=== PATIENT | female | born 1960 | race Caucasian/White ===

== ENCOUNTER 2023-10-27 09:20 | Emergency (ER) | payer OTHER, SELFPAY ==
[2023-10-27 09:21] VITALS: BP 119/92
[2023-10-27 09:31] VITALS: BP 140/114
[2023-10-27 10:00] VITALS: BP 132/69
--- NOTE | 2023-10-27 10:48 | ED.GENMED ---
History of Present Illness
General
Chief Complaint: Heart Rate Problem
Source: patient
Exam Limitations: none
Time Seen by Provider: 10/27/23 09:37
Travel History
Have you had any contact with someone who has COVID-19?: No
Do you have any symptoms of coronavirus? Fever > 100 degrees, chills, cough, shortness of breath, sore throat, loss of taste or smell, muscle aches, or headache?: No
History of Present Illness
History of Present Illness:
Heart racing started about 4 hours prior to ER arrival. No chest pain no shortness of breath. Feels slightly lightheaded. No history of same. Patient is on steroids and antibiotics for ongoing bronchitis
Past History
Past History
ED Past Medical History: Other (Kidney stones)
ED Past Surgical History: Appendectomy and
Social History
Tobacco: Non-smoker
Alcohol: None
Drug: None
Personal:
Living: with family
Employment: Employed
Family History
Family History: Other
Review of Systems
Review of Systems
All Other Systems: Not applicable
Constitutional: Denies fever
Respiratory: Denies other
Cardiac: Denies chest pain or syncope
Phy Exam
Physical Exam
Physical Exam:
GENERAL: Alert and oriented in no apparent distress
EYE: Orbits normal.
NECK: Supple, no thyroid palpable
CARDIAC: Tachycardic and regular no murmur
LUNGS: Clear breath sounds,normal
ABDOMEN: Soft, without focal tenderness or distention
NEUROLOGICAL: Alert and oriented , grossly non-focal
SKIN: Warm and dry, no rash or lesion, no discoloration, skin intact.
MUSCULOSKELETAL: No edema,no deformity.Good color
PSYCH: Normal and appropriate interaction.
Scores
[id number] Score for Afib Stroke Risk
Age in Years (65=0, 65-74=1, >/=75=2): <65
Sex (Female=+1): Female
Congestive Heart Failure History (Yes=+1): No
Hypertension History (Yes=+1): Yes
Stroke/TIA/Thromboembolism History (Yes=+2): No
Vascular Disease History (Yes=+1): No
Diabetes Mellitus (Yes=+1): No
Score: 2
Anticoagulation Recommendations: Recommend anticoagulation (as validated in nonvalvular fib)
Course
Orders/Labs/Results
Orders:
Orders
10/27/23 09:23
Electrocardiogram (*1) Urgent
Reason for Study: Tachycardia
EKG- Treatment ONCE
10/27/23 10:02
Electrocardiogram (*1) Urgent
Reason for Study: Other
Other Reason for Exam: change from flutter
EKG- Treatment ONCE
10/27/23 10:46
Cardiac Monitoring- Treatment ONCE
IV Insert/Care/Rem.- Treatment PRN
10/27/23 10:58
Basic Metabolic Panel Urgent
Complete Blood Count/With Diff Urgent
TSH Reflex To Free T4 Urgent
10/27/23 12:00
Apixaban [Eliquis] 5 mg PO NOW STA
Abnormal Lab Results
10/27/23
10:58
WBC 13.3 H 10^3/uL
(4.8-10.8)
MCH 32.4 H pg
(27.0-31.0)
MPV 10.7 H fL
(7.4-10.4)
Abs Immat Gran (auto) 0.1 H 10^3/uL
(0-0.05)
Absolute Neuts (auto) 7.4 H 10^3/uL
(1.4-6.5)
Absolute Lymphs (auto) 4.0 H 10^3/uL
(1.2-3.4)
Absolute Monos (auto) 1.5 H 10^3/uL
(0.1-0.6)
Immature Gran % 0.7 H %
(0-0.5)
Monocytes % 11.1 H %
(1.7-9.3)
Creatinine 0.5 L mg/dL
(0.6-1.0)
Glucose 122 H mg/dl
(70-99)
10/27/23 10:58
10/27/23 10:58
Vital Signs
Initial and Last Documented VS:
Initial Vital Signs
Temp Pulse Resp BP Pulse Ox
98.1 F 121 18 119/92 97
10/27/23 09:21 10/27/23 09:21 10/27/23 09:21 10/27/23 09:21 10/27/23 09:21
Last Documented Vital Signs
Temp Pulse Resp BP Pulse Ox
98.1 F 75 10 132/69 97
10/27/23 09:21 10/27/23 10:15 10/27/23 10:15 10/27/23 10:00 10/27/23 10:26
*Pulse Oximetry
Patient hypoxic: no
*EKG
Interpreted by ED Provider?: Yes
Interpretation: abnormal
Comparison EKG: changes noted
Heart Rate: 160
Rate: tachycardiac
Rhythm: atrial flutter
Powell: normal axis
Interval: normal interval
QRS Pattern: left vent hypertrophy
Ischemia: non-specific ST changes
*Critical Care Note
Total Time (30-74mins, 75-104mins- exclusive of procedures): Not Applicable
Update Note
Update Note:
Patient self converted repeat EKG normal sinus rhythm rate of 77. Powell left axis deviation.
1200.... Discussed with cardiology. Has remained in a normal sinus rhythm. Mild leukocytosis but on steroids. Vipin vas 2. They recommend anticoagulation. Discussed with patient. No contraindication
ED Attending Note
-
Portions of this chart may have been created with voice recognition software.� Occasional wrong word or��sound alike� substitutions may have occurred due to the inherent limitations of voice recognition software.
Discharge Plan
Departure
Patient Disposition: Home (Routine Discharge)
Date of Disposition: 10/27/23
Time of Disposition: 12:00
Patient with high blood pressure during this ER visit?: Yes
Discharge Problem:
Transient atrial flutter, Recent bronchitis
Instructions: Atrial Flutter (DC), Going Home on Blood Thinners , BLOOD PRESSURE
Prescriptions:
New
Eliquis 5 mg tablet
5 mg PO BID Qty: 60 0RF
No Action
ibuprofen 200 MG tablet
800 mg PO BIDPRN PRN (Reason: mild pain)
vitamin B complex [Neurodep] 1 CAP capsule
1 cap PO DAILY
docosahexaenoic acid-epa 1 CAP capsule
1 cap PO DAILY
Magnesium
1 tab PO DAILY
Vitamin D3 (cholecalciferol):
1 tab PO DAILY
Referrals:
Jarrell Wilson MD [Active] - Follow up in 5-7 days
Ace Cox MD [Family Provider] -
Activity Restrictions/Additional Instructions:
Your prescription was sent to your pharmacy
Follow-up closely with cardiology
Interventions
Interventions:
*Risk Screen - Suicide Last Done: 10/27/23 09:21
*General Assessment Last Done: 10/27/23 09:21
*Neglect/Abuse Screening Last Done: 10/27/23 09:21
ED- Fall Risk Assessment Last Done: 10/27/23 10:26
*ED COVID-19 Vaccine History Last Done: 10/27/23 09:21
ED- Cardiac Assessment Last Done: 10/27/23 10:26
ED- Pulmonary Assessment Last Done: 10/27/23 10:26
[2023-10-27 11:00] VITALS: BP 135/71
[2023-10-27 11:07] LABS: % Basophils 0.7 % (0-2); % Eosinophils 1.7 % (0-6); % Immature Granulocytes 0.7 % (0-0.5); % Lymphocytes 29.9 % (20.5-51.1); % Monocytes 11.1 % (1.7-9.3); % Neutrophils 55.9 % (42.2-75.2); Absolute Basophils 0.1 10^3/uL (0-0.2); Absolute Eosinophils 0.2 10^3/uL (0-0.7); Absolute Immature Granulocytes 0.1 10^3/uL (0-0.05); Absolute Monocytes 1.5 10^3/uL (0.1-0.6); Absolute Neutrophils 7.4 10^3/uL (1.4-6.5); Hematocrit 45.5 % (37.0-47.0); Hemoglobin 15.7 g/dL (12.0-16.0); Mean Corp Hgb Conc. 34.5 g/dL (33.0-37.0); Mean Corpuscular Hgb 32.4 pg (27.0-31.0); Mean Corpuscular Volume 93.8 fL (81.0-99.0); Mean Platelet Volume 10.7 fL (7.4-10.4); Nucleated Red Blood Cells % 0 %; Platelet Count 323 10^3/uL (130-400); Red Blood Cell Count 4.85 10^6/uL (4.20-5.40); White Blood Cell Count 13.3 10^3/uL (4.8-10.8)
[2023-10-27 11:25] LABS: Blood Urea Nitrogen 14 mg/dl (7-17); Calcium 8.9 mg/dl (8.4-10.2); Carbon Dioxide 24 mmol/L (22-30); Chloride 106 mmol/L (98-107); Glucose 122 mg/dl (70-99); Potassium 4.2 mmol/L (3.5-5.1); Sodium 139 mmol/L (135-145); eGFR > 60.00
[2023-10-27 11:59] LABS: TSH Reflex To Free T4 0.73 uIU/ml (0.47-4.68)
[2023-10-27 12:00] VITALS: BP 135/68
[2023-10-27] MEDS: ELIQUIS 5 MG PO (12:16)
== END 2023-10-27 12:28 | disposition home or self-care (01) ==
LOC: EMR 09:20
PROVIDERS: EMERGENCY PHYSICIAN Emergency Medicine; FAMILY PHYSICIAN Internal Medicine
DX: I48.92 Unspecified atrial flutter (principal); R42 Dizziness and giddiness; J20.9 Acute bronchitis, unspecified; Z87.442 Personal history of urinary calculi
CPT/HCPCS: 99284; 80048; 84443; 85025; 93005

== ENCOUNTER 2023-11-18 11:22 | Emergency (ER) | payer OTHER, SELFPAY ==
[2023-11-18 11:31] VITALS: BP 174/86
[2023-11-18 11:50] LABS: % Basophils 0.5 % (0-2); % Eosinophils 0.6 % (0-6); % Immature Granulocytes 1.1 % (0-0.5); % Lymphocytes 15.4 % (20.5-51.1); % Monocytes 8.9 % (1.7-9.3); % Neutrophils 73.5 % (42.2-75.2); Absolute Basophils 0.1 10^3/uL (0-0.2); Absolute Eosinophils 0.1 10^3/uL (0-0.7); Absolute Immature Granulocytes 0.2 10^3/uL (0-0.05); Absolute Lymphocytes 2.3 10^3/uL (1.2-3.4); Absolute Monocytes 1.4 10^3/uL (0.1-0.6); Absolute Neutrophils 11.2 10^3/uL (1.4-6.5); Hematocrit 40.8 % (37.0-47.0); Hemoglobin 13.9 g/dL (12.0-16.0); Mean Corp Hgb Conc. 34.1 g/dL (33.0-37.0); Mean Corpuscular Hgb 32.1 pg (27.0-31.0); Mean Corpuscular Volume 94.2 fL (81.0-99.0); Mean Platelet Volume 9.8 fL (7.4-10.4); Nucleated Red Blood Cells % 0 %; Platelet Count 359 10^3/uL (130-400); Red Blood Cell Count 4.33 10^6/uL (4.20-5.40); Red Cell Dist. Width 13.2 % (11.5-14.5); White Blood Cell Count 15.2 10^3/uL (4.8-10.8)
[2023-11-18 12:03] LABS: ALT (SGPT) 35 U/L (0-35); AST (SGOT) 30 U/L (14-36); Albumin 4.2 g/dl (3.5-5.0); Alkaline Phosphatase 79 U/L (38-126); Blood Urea Nitrogen 15 mg/dl (7-17); Calcium 9.5 mg/dl (8.4-10.2); Carbon Dioxide 25 mmol/L (22-30); Chloride 106 mmol/L (98-107); Glucose 123 mg/dl (70-99); Potassium 3.9 mmol/L (3.5-5.1); Sodium 137 mmol/L (135-145); Total Bilirubin 0.5 mg/dl (0.2-1.3); Total Protein 7.5 g/dl (6.3-8.2); eGFR > 60.00
--- NOTE | 2023-11-18 13:02 | ED.GENMED ---
History of Present Illness
General
Chief Complaint: Cough
Source: patient
Exam Limitations: none
Time Seen by Provider: 11/18/23 13:01
Nursing documentation reviewed up to this point in time: agreed with
Travel History
Have you had any contact with someone who has COVID-19?: No
Do you have any symptoms of coronavirus? Fever > 100 degrees, chills, cough, shortness of breath, sore throat, loss of taste or smell, muscle aches, or headache?: Yes
Symptoms:: cough
History of Present Illness
History of Present Illness:
62-year-old female with history of hypertension, recently diagnosed atrial flutter converted spontaneously back to sinus rhythm now on anticoagulation for the past 3 weeks
Presents for ongoing wheezy cough. Patient says she got sick in August with what she suspected was COVID but never tested positive. Her dad had been sick with pneumonia and he got COVID and he . She was around him at the time. She
ended up going to urgent care and was treated with antibiotics and steroids. She is not sure what dose of steroids she was given. Patient says she ultimately never really felt like she cleared up and by October she ended up going back to her family
doctor for a cough. She felt like she got an acute illness at that time 2. At that time she did not have a chest x-ray. She was treated again with a round of steroids for several days and antibiotics, she is not sure which 1.
Then about 3 weeks ago she came to the ER for tachycardia. It appeared that she was having a A-flutter episode with 2-1 block. She spontaneously converted while she was in the ER. Because of her [id number] score of 2 she was anticoagulated and
discharged home for cardiology follow-up. She saw [address] Wilson's nurse practitioners in the office, wore a Holter monitor and has been told that her rhythm is normal.
She still does not feel well, she feels chronically short of breath, has a cough with worsening left-sided rib pain when she breathes or coughs. She is not having any fever or chills, productivity of her cough, nausea or vomiting or diarrhea. She
came last night but the wait was very long so she left without being seen. Patient has seen a splitting machine feeder as well as an outpatient was given a prescription for Qvar which has been on for couple weeks. The Qvar does not seem to be helping so she
called 4 days ago and they called her in a prednisone taper. She had 50 mg for 3 days and is now on the first day of 40 mg. She took it this morning. She has no other rescue inhaler or nebulizer machine at home and has never been treated with neb
machine. She denies any history of COPD but did have childhood asthma. She is not a smoker
Past History
Past History
ED Past Medical History: Arrthythmia, HTN, Hypercholesterolemia and Other (Kidney stones)
ED Past Surgical History: Appendectomy and
Social History
Tobacco: Non-smoker
Alcohol: None
Drug: None
Personal:
Living: with family
Employment: Employed
Family History
Family History: Other
Review of Systems
Review of Systems
Allergies reviewed?: Yes
All Other Systems: Not applicable
Phy Exam
Physical Exam
Physical Exam:
gen: appears nontoxic, Spastic frequent cough
EYE: pupils equal and reactive
NECK: Supple
ENT: o/p clr, mmm.
CARDIAC: Regular rate and rhythm .
LUNGS: Diffusely wheezy, spastic cough with breathing, patient is moving decent air, no tachypnea noted, no increased work of breathing no rales appreciated
ABDOMEN: Soft, without focal tenderness, no r/g, no cvat, normal bowel sounds
NEUROLOGICAL: Alert and oriented, no focal neuro deficits
SKIN: Warm and dry, skin intact.
MUSCULOSKELETAL: No edema, well perfused. neg isiah's sign
PSYCH: Normal and appropriate interaction.
Course
Orders/Labs/Results
Orders:
Orders
11/18/23 11:34
CR Chest - 2 Views Urgent
Comment:
Reason For Exam: cough
11/18/23 11:39
COVID-19 Antigen Urgent
Source: Nasal Swab
Complete Blood Count/With Diff Urgent
Comprehensive Metabolic Panel Urgent
Influenza A+B Rapid Molecular Urgent
ZAKIA Source: Nasal Swab
Specimen Description:
11/18/23 13:14
Electrocardiogram (*1) Urgent
Reason for Study: Shortness of Breath
EKG- Treatment ONCE
Ipratropium/Albuterol Sulfate [Duoneb] 3 ml INH R NOW STA
11/18/23 13:32
D-Dimer Urgent
NT-proBNP Urgent
11/18/23 14:36
CT Chest Pe Study Urgent
Comment:
Reason For Exam: elev d dimer, wheezing, sob, cough
Ipratropium/Albuterol Sulfate [Duoneb] 3 ml INH R NOW STA
11/18/23 18:32
Albuterol Nebs [Ventolin Nebules] 2.5 mg INH R NOW STA
11/18/23 19:16
Hydrocodone 5/APAP 325 [[place] 5/325] 1 tablet PO NOW STA
11/18/23 19:22
Albuterol Nebs [Ventolin Nebules] 2.5 mg .ROUTE .STK-MED ONE
Abnormal Lab Results
11/18/23 11/18/23
11:39 13:32
WBC 15.2 H 10^3/uL
(4.8-10.8)
MCH 32.1 H pg
(27.0-31.0)
Abs Immat Gran (auto) 0.2 H 10^3/uL
(0-0.05)
Absolute Neuts (auto) 11.2 H 10^3/uL
(1.4-6.5)
Absolute Monos (auto) 1.4 H 10^3/uL
(0.1-0.6)
Immature Gran % 1.1 H %
(0-0.5)
Lymphocytes % 15.4 L %
(20.5-51.1)
D-Dimer 0.68 H ug/mlFEU
(0.00-0.50)
Creatinine 0.4 L mg/dL
(0.6-1.0)
Glucose 123 H mg/dl
(70-99)
11/18/23 11:39
11/18/23 11:39
Vital Signs
Initial and Last Documented VS:
Initial Vital Signs
Temp Pulse Resp BP Pulse Ox
98.6 F 90 22 174/86 95
11/18/23 11:31 11/18/23 11:31 11/18/23 11:31 11/18/23 11:31 11/18/23 11:31
Last Documented Vital Signs
Temp Pulse Resp BP Pulse Ox
98.6 F 90 22 140/70 95
11/18/23 11:31 11/18/23 11:31 11/18/23 11:31 11/18/23 19:00 11/18/23 15:00
MDM/Problems Addressed
Differential Diagnosis Includes:
Reactive airway disease, asthmatic bronchitis, PE, CHF
MDM/Problems Addressed:
62-year-old female with a history of recently diagnosed arrhythmia on Eliquis for the last several weeks presenting for ongoing cough and wheezing. Patient has been treated with now 3 rounds of steroids, 2 rounds of antibiotics and a steroid
inhaler without improvement. She now has a pleuritic pain in her left ribs, it is worse also with coughing and movement. She has never been evaluated for PE throughout all of this. When she presented for tachycardia it appears that she was in a
flutter but she spontaneously converted. She has not had a recent echocardiogram. She does not appreciate any edema in her legs
On exam the patient has a quite frequent spastic cough and is wheezing but not overly tachypneic, not hypoxic, moving good air. She has minimal edema in her legs which is nonpitting, could be related to her amlodipine. Chest x-ray was
independently reviewed by me and I felt that she had some degree of increased vascularization however radiologist did not appreciate edema. She has no focal consolidation.
Unaware that the patient is anticoagulated but would be concerned that her tachycardia from several weeks ago was actually subsequent to a PE. Will order a D-dimer, BNP, DuoNeb and reevaluate
11/18/2023 1826 PM
D-dimer was elevated so we ultimately did a CT scan which showed no blood clot but she does have a very tiny left pleural effusion and a an acute left seventh rib fracture
Patient required a second DuoNeb and after that had much less coughing and wheezing and she is feeling well enough to go home. She was offered an observation admission for steroids and nebs but her wheezing has greatly improved, she is not having a
spastic cough. She has no bronchodilator at home. I am wondering if this is because of the new a flutter, she is not in a flutter currently and felt like the risk-benefit was that it would be worth it to give her albuterol neb every 6 hours as
needed, with the patient being aware of this that it could potentiate her to go back into a flutter. She is anticoagulated.
Will discharge home
*Critical Care Note
Total Time (30-74mins, 75-104mins- exclusive of procedures): Not Applicable
ED Attending Note
-
Portions of this chart may have been created with voice recognition software.� Occasional wrong word or��sound alike� substitutions may have occurred due to the inherent limitations of voice recognition software.
Discharge Plan
Departure
Patient Disposition: Home (Routine Discharge)
Date of Disposition: 11/18/23
Time of Disposition: 18:27
Patient with high blood pressure during this ER visit?: No
Condition: Fair
Covid-19: Not Applicable
Discharge Problem:
Asthmatic bronchitis
Instructions: Acute Bronchitis, Adult (DC), Wheezing
Prescriptions:
New
albuterol sulfate 2.5 mg /3 mL (0.083 %) solution for nebulization
2.5 mg inhalation QID PRN (Reason: shortness of breath or wheezing) Qty: 75 0RF
hydrocodone-acetaminophen 5-325 mg tablet
1 tab PO BID PRN (Reason: Pain) Qty: 12 0RF
No Action
ibuprofen 200 MG tablet
800 mg PO BIDPRN PRN (Reason: mild pain)
vitamin B complex [Neurodep] 1 CAP capsule
1 cap PO DAILY
docosahexaenoic acid-epa 1 CAP capsule
1 cap PO DAILY
Magnesium
1 tab PO DAILY
Vitamin D3 (cholecalciferol):
1 tab PO DAILY
Eliquis 5 mg tablet
5 mg PO BID Qty: 60 0RF
Referrals:
Ace Cox MD [Family Provider] - Follow up in 2-3 days
Activity Restrictions/Additional Instructions:
Your workup today showed that you have a left seventh rib fracture probably from all the coughing. You had no signs of any pneumonia. You had a tiny left pleural effusion which is a little bit of fluid in the pleural space of your lungwhich should
resolve. It is not concerning at this time. If it got bigger in size you would need further evaluation. So you can have a repeat a chest x-ray in a couple of weeks.
In the meantime continue your steroid taper. You can try albuterol nebulizers every 6 hours as needed, be aware that sometimes these medications can predispose you to be at risk for going back into a flutter. You are anticoagulated so I feel that
this is safe and worth the risk at this time given how much wheezing you have had. Please follow-up with your splitting machine feeder. In the meantime in between your albuterol treatments you can also try saline nebs to help with your cough.
Take pain medicine like Tylenol and ibuprofen for your rib fracture. This should heal on its own.
Return to the ER for continued wheezing despite nebulizer treatments, heart racing, shortness of breath, fever, passing out, or any concerns
Interventions
Interventions:
*Risk Screen - Suicide Last Done: 11/18/23 11:31
*General Assessment Last Done: 11/18/23 11:31
*Neglect/Abuse Screening Last Done: 11/18/23 11:31
ED- Fall Risk Assessment Last Done: 11/18/23 19:27
*ED COVID-19 Vaccine History Last Done: 11/18/23 11:34
*Nursing Disposition Last Done: 11/18/23 19:27
ED- Pulmonary Assessment Last Done: 11/18/23 15:00
Discharge Date and Time
Discharge Date/Time: 11/18/23 19:28
Print Language: LAO
[2023-11-18 13:23] VITALS: BMI 37.8
[2023-11-18 13:23] LABS: COVID-19 Antigen Negative (Negative)
[2023-11-18] MEDS: DUONEB 3 ML INH ×2 (13:25→14:44)
[2023-11-18 13:52] LABS: D-Dimer 0.68 ug/mlFEU (0.00-0.50)
[2023-11-18 14:00] LABS: NT-proBNP 23.8 pg/ml
[2023-11-18 14:37] VITALS: BP 138/64
[2023-11-18 15:00] VITALS: BP 144/78
[2023-11-18 16:00] VITALS: BP 134/60
[2023-11-18 18:17] VITALS: BP 129/65
[2023-11-18 19:00] VITALS: BP 140/70
[2023-11-18] MEDS: NORCO 5/325 1 TABLET PO (19:24)
[2023-11-18] MEDS: VENTOLIN NEBULES 2.5 MG INH (19:24)
== END 2023-11-18 19:28 | disposition home or self-care (01) ==
LOC: EMR 11:22
PROVIDERS: Emergency Medicine; Physician Assistant; EMERGENCY PHYSICIAN Emergency Medicine; FAMILY PHYSICIAN Internal Medicine
DX: J20.9 Acute bronchitis, unspecified (principal); J45.909 Unspecified asthma, uncomplicated; S22.32XA Fracture of one rib, left side, initial encounter for closed fracture; X58.XXXA Exposure to other specified factors, initial encounter; I48.92 Unspecified atrial flutter; Z11.52 Encounter for screening for COVID-19; Z79.01 Long term (current) use of anticoagulants
CPT/HCPCS: 99285; 94640; 71046; 71275; 80053; 83880; 85025; 85379; 87502; 87811; 93005; Q9967

== ENCOUNTER 2023-12-10 15:08 | Inpatient (IN) | payer OTHER, SELFPAY ==
[2023-12-10] VITALS (11 sets, daily range): BP systolic 96–133; BP diastolic 53–93
--- NOTE | 2023-12-10 11:08 | ED.GENMED ---
History of Present Illness
<Sadaf Rojas PA-C - Last Filed: 12/10/23 18:41>
General
Chief Complaint: Heart Rate Problem
Source: patient
Exam Limitations: none
Time Seen by Provider: 12/10/23 11:08
Nursing documentation reviewed up to this point in time: agreed with
Travel History
Have you had any contact with someone who has COVID-19?: No
Do you have any symptoms of coronavirus? Fever > 100 degrees, chills, cough, shortness of breath, sore throat, loss of taste or smell, muscle aches, or headache?: No
History of Present Illness
History of Present Illness:
This is a 62-year-old female with a past medical history of a flutter, hypertension presenting emergency department for palpitations and some dizziness that started this morning. Patient states that she was waking up this morning earlier when she
felt some palpitations, thought nothing of it and went back to sleep. Patient states that when she officially woke up, she noticed that they were still there and decided to report to emergency department. She also notes some midline chest
discomfort/heaviness that is constant. Patient also notes some shortness of breath with exertion. Patient went into a flutter last month, and she spontaneously converted in the ER. Due to her [id number] score 2, she was started on Eliquis. She
does not currently take anything for rate or rhythm control. She does take propranolol which was prescribed for performance anxiety.
Past History
<Sadaf Rojas PA-C - Last Filed: 12/10/23 18:41>
Past History
ED Past Medical History: Arrthythmia, HTN, Hypercholesterolemia and Other (Kidney stones)
ED Past Surgical History: Appendectomy and
Social History
Tobacco: Non-smoker
Alcohol: None
Drug: None
Personal:
Living: with family
Employment: Employed
Family History
Family History: Other
Review of Systems
<Sadaf Rojas PA-C - Last Filed: 12/10/23 18:41>
Review of Systems
All Other Systems: ROS reviewed and negative except as documented in HPI and ROS
Phy Exam
<Sadaf Rojas PA-C - Last Filed: 12/10/23 18:41>
Physical Exam
Physical Exam:
General: Patient is well appearing and in no acute distress; non-toxic
Skin: Warm and dry, no rashes or lesions
Head: Normocephalic, atraumatic
Eyes: Sclera non-icteric. EOMs intact.
Cardiac: Regular rate and rhythm, no murmurs
Peripheral Vascular: No lower extremity edema, 2+ dorsalis pedis pulses b/l
Pulm: Normal respiratory effort, no wheezes, rales, rhonchi
Abdomen: No abdominal tenderness
Neuro: CN II-XII intact, no focal neurologic deficits.
Psychiatric: Appropriate mood and affect.
Course
<Sadaf Rojas PA-C - Last Filed: 12/10/23 18:41>
Orders/Labs/Results
Orders:
Orders
12/10/23
Electrocardiogram (*1) Stat
Reason for Study: Chest Pain
Comment: NO ORDER RECIEVED
12/10/23 10:15
EKG [Electrocardiogram (*1)] Urgent
Reason for Study: Tachycardia
12/10/23 10:16
EKG- Treatment ONCE
12/10/23 11:40
Basic Metabolic Panel Urgent
Complete Blood Count/With Diff Urgent
Troponin I Urgent
12/10/23 12:02
Atropine Sulfate [Atropine 0.1 mg/ml Syringe] 1 mg .ROUTE .STK-MED ONE
12/10/23 12:10
0.9% Sodium Chloride 500 ml [Nss] 500 ml IV BOLUS
12/10/23 12:22
Add On- LAB Urgent
Tests Added?: MAGNESIUM
12/10/23 12:25
Comprehensive Metabolic Panel Urgent
Magnesium Urgent
Comment: ADD ON
12/10/23 13:44
Admit/Transfer Patient As Directed
Co-Sign Provider:
Level of Care: Inpatient admission
Assign to:: IVU
Physician / Group: Hospitalist
Diagnosis: Atrial fibrillation
Reason for Hospitalization: Pause
Expected length of stay greater than two midnights?: Yes
ELOS- Estimated Length of Stay in days: 2
I certify the patient meets the requirements for IP care: Yes
12/10/23 13:45
Code Status As Directed
Resuscitation Status: Full Code
12/10/23 Dinner
Regular
At Your Request: Full Participation
12/10/23 16:38
Bisacodyl [Dulcolax] 10 mg RECTAL [id number] PRN
Docusate W/Senna [Senokot-S] 1 tablet PO BIDPRN PRN
Polyethylene Glycol Powder [Miralax] 17 grams PO DAILYPRN PRN
12/10/23 16:38
Echo 2D MMode Color/Doppler Routine
Reason for Study: pause
CARDIOLOGY CONSULT Routine
Consulting Provider: Fabricio Hoang
Was physician already notified: Yes
Reason for consult: Afib with pause
Activity As Directed
Activity Level: Ambulate
Vital Signs As Directed
Frequency: Per unit guidelines
12/10/23 17:07
Troponin I Q6H
12/10/23 20:00
Albuterol Nebs [Ventolin Nebules] 2.5 mg INH R QID PRN
Apixaban [Eliquis] 5 mg PO BID
FLUTICASONE PROPIONATE 44 mcg [Flovent 44 Mcg Inhaler] 1 puff INH R BID PRN
Hydrocodone 5/APAP 325 [Derby 5/325] 1 tablet PO BID PRN
12/10/23 22:38
Troponin I Q6H
12/11/23 06:00
Basic Metabolic Panel IN AM
Complete Blood Count/No Diff IN AM
Magnesium IN AM
12/11/23 08:00
Amlodipine [Norvasc] 10 mg PO DAILY
Cholecalciferol (Vitamin D3) [VITAMIN D3 (cholecalciferol)] 25 mcg PO DAILY
Magnesium Oxide 250 mg PO DAILY
Vitamin B Complex with C [B COMPLEX w/VITAMIN C] 1 caplet PO DAILY
Abnormal Lab Results
12/10/23 12/10/23
11:40 12:25
WBC 10.9 H 10^3/uL
(4.8-10.8)
MCH 31.9 H pg
(27.0-31.0)
Absolute Neuts (auto) 6.8 H 10^3/uL
(1.4-6.5)
Absolute Monos (auto) 1.1 H 10^3/uL
(0.1-0.6)
Monocytes % 10.1 H %
(1.7-9.3)
Chloride 109 H mmol/L 108 H mmol/L
(98-107) (98-107)
Creatinine 0.4 L mg/dL 0.5 L mg/dL
(0.6-1.0) (0.6-1.0)
Glucose 104 H mg/dl 126 H mg/dl
(70-99) (70-99)
12/10/23 11:40
12/10/23 12:25
Vital Signs
Initial and Last Documented VS:
Initial Vital Signs
Temp Pulse Resp BP Pulse Ox
99.0 F 82 16 124/89 98
12/10/23 10:20 12/10/23 10:20 12/10/23 10:20 12/10/23 10:20 12/10/23 10:20
Last Documented Vital Signs
Temp Pulse Resp BP Pulse Ox
98.4 F 64 16 127/64 97
12/10/23 17:10 12/10/23 17:15 12/10/23 17:10 12/10/23 17:10 12/10/23 17:10
<Tee Yuan, DO - Last Filed: 12/10/23 12:29>
Orders/Labs/Results
Orders:
Orders
12/10/23
Electrocardiogram (*1) Stat
Reason for Study: Chest Pain
Comment: NO ORDER RECIEVED
12/10/23 10:15
EKG [Electrocardiogram (*1)] Urgent
Reason for Study: Tachycardia
12/10/23 10:16
EKG- Treatment ONCE
12/10/23 11:40
Basic Metabolic Panel Urgent
Complete Blood Count/With Diff Urgent
Troponin I Urgent
12/10/23 12:02
Atropine Sulfate [Atropine 0.1 mg/ml Syringe] 1 mg .ROUTE .STK-MED ONE
12/10/23 12:10
0.9% Sodium Chloride 500 ml [Nss] 500 ml IV BOLUS
12/10/23 12:22
Add On- LAB Urgent
Tests Added?: MAGNESIUM
12/10/23 12:25
Comprehensive Metabolic Panel Urgent
Magnesium Urgent
Comment: ADD ON
12/10/23 13:44
Admit/Transfer Patient As Directed
Co-Sign Provider:
Level of Care: Inpatient admission
Assign to:: IVU
Physician / Group: Hospitalist
Diagnosis: Atrial fibrillation
Reason for Hospitalization: Pause
Expected length of stay greater than two midnights?: Yes
ELOS- Estimated Length of Stay in days: 2
I certify the patient meets the requirements for IP care: Yes
12/10/23 13:45
Code Status As Directed
Resuscitation Status: Full Code
12/10/23 Dinner
Regular
At Your Request: Full Participation
12/10/23 16:38
Bisacodyl [Dulcolax] 10 mg RECTAL [id number] PRN
Docusate W/Senna [Senokot-S] 1 tablet PO BIDPRN PRN
Polyethylene Glycol Powder [Miralax] 17 grams PO DAILYPRN PRN
12/10/23 16:38
Echo 2D MMode Color/Doppler Routine
Reason for Study: pause
CARDIOLOGY CONSULT Routine
Consulting Provider: Fabricio Hoang
Was physician already notified: Yes
Reason for consult: Afib with pause
Activity As Directed
Activity Level: Ambulate
Vital Signs As Directed
Frequency: Per unit guidelines
12/10/23 17:07
Troponin I Q6H
12/10/23 20:00
Albuterol Nebs [Ventolin Nebules] 2.5 mg INH R QID PRN
Apixaban [Eliquis] 5 mg PO BID
FLUTICASONE PROPIONATE 44 mcg [Flovent 44 Mcg Inhaler] 1 puff INH R BID PRN
Hydrocodone 5/APAP 325 [Derby 5/325] 1 tablet PO BID PRN
12/10/23 22:38
Troponin I Q6H
12/11/23 06:00
Basic Metabolic Panel IN AM
Complete Blood Count/No Diff IN AM
Magnesium IN AM
12/11/23 08:00
Amlodipine [Norvasc] 10 mg PO DAILY
Cholecalciferol (Vitamin D3) [VITAMIN D3 (cholecalciferol)] 25 mcg PO DAILY
Magnesium Oxide 250 mg PO DAILY
Vitamin B Complex with C [B COMPLEX w/VITAMIN C] 1 caplet PO DAILY
Abnormal Lab Results
12/10/23 12/10/23
11:40 12:25
WBC 10.9 H 10^3/uL
(4.8-10.8)
MCH 31.9 H pg
(27.0-31.0)
Absolute Neuts (auto) 6.8 H 10^3/uL
(1.4-6.5)
Absolute Monos (auto) 1.1 H 10^3/uL
(0.1-0.6)
Monocytes % 10.1 H %
(1.7-9.3)
Chloride 109 H mmol/L 108 H mmol/L
(98-107) (98-107)
Creatinine 0.4 L mg/dL 0.5 L mg/dL
(0.6-1.0) (0.6-1.0)
Glucose 104 H mg/dl 126 H mg/dl
(70-99) (70-99)
12/10/23 11:40
12/10/23 12:25
Vital Signs
Initial and Last Documented VS:
Initial Vital Signs
Temp Pulse Resp BP Pulse Ox
99.0 F 82 16 124/89 98
12/10/23 10:20 12/10/23 10:20 12/10/23 10:20 12/10/23 10:20 12/10/23 10:20
Last Documented Vital Signs
Temp Pulse Resp BP Pulse Ox
98.4 F 64 16 127/64 97
12/10/23 17:10 12/10/23 17:15 12/10/23 17:10 12/10/23 17:10 12/10/23 17:10
<Sadaf Rojas PA-C - Last Filed: 12/10/23 18:41>
MDM/Problems Addressed
Differential Diagnosis Includes:
ddx include afib with RVR, aflutter, sinus tachycardia, tachy-jason syndrome, ACS, PE,
<Sadaf Rojas PA-C - Last Filed: 12/10/23 18:41>
*Critical Care Note
Total Time (30-74mins, 75-104mins- exclusive of procedures): Not Applicable
<Sadaf Rojas PA-C - Last Filed: 12/10/23 18:41>
Patient Management
Escalation/DeEscalation of care consider admission/obs:
This is a 62-year-old female with a past medical history of a flutter, hypertension presenting emergency department for palpitations and some dizziness that started this morning. Patient converted spontaneously to normal sinus rhythm after a long
pause. Patient then became acutely bradycardic and the 30s, I called Dr. Yuan into the room, patient also hypotensive at this time, within minutes, her heart rate returned to her normal 60s. Due to her significant symptoms and her erratic heart
rate, she will need to be admitted for further monitoring and workup Dr. Hoang saw patient and will plan for pacemaker implantation on Tuesday. Patient aware of plan. Patient staffed by hospitalist
ED Attending Note
<Sadaf Rojas PA-C - Last Filed: 12/10/23 18:41>
-
Portions of this chart may have been created with voice recognition software.� Occasional wrong word or��sound alike� substitutions may have occurred due to the inherent limitations of voice recognition software.
<Tee Yuan DO - Last Filed: 12/10/23 12:29>
ED Attending Note
Patient seen and examined by attending physician: Yes
I performed the substantive portion of visit, reviewed & personally made and approve the management plan that is documented in note by myself or JOBY.: Yes
ED Attending Note:
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 [facility] previously scheduled for an outpatient echocardiogram presents with palpitations and some chest pain, was in rapid
A-fib initially then converted with a long pause I was called to the room urgently she was bradycardic into the 30s and diaphoretic with sitting upright heart rate into the 60s, blood pressure improved with some saline
Will check her electrolytes, continue cardiac monitoring, message sent to cardiology and hospitalist I believe will be prudent to admit her to the hospital hold her beta-ike
Discharge Plan
Departure
Patient Disposition: Admit
Date of Disposition: 12/10/23
Time of Disposition: 13:15
Admit to: Telemetry
Presentation/result/management discussed w/ accepting MD/DO: Hospitalist
Discharge Problem:
Atrial fibrillation with rapid ventricular response, Tachy-jason syndrome
Interventions
Interventions:
*Risk Screen - Suicide Last Done: 12/10/23 11:18
*General Assessment Last Done: 12/10/23 11:18
*Neglect/Abuse Screening Last Done: 12/10/23 11:18
ED- Fall Risk Assessment Last Done: 12/10/23 11:18
*ED COVID-19 Vaccine History Last Done: 12/10/23 10:20
*Nursing Disposition Last Done: 12/10/23 16:33
ED- Cardiac Assessment Last Done: 12/10/23 11:18
ED- Pulmonary Assessment Last Done: 12/10/23 11:18
Discharge Date and Time
Discharge Date/Time: 12/10/23 16:33
[2023-12-10 12:06] LABS: % Basophils 0.7 % (0-2); % Eosinophils 2.3 % (0-6); % Immature Granulocytes 0.3 % (0-0.5); % Lymphocytes 24.5 % (20.5-51.1); % Monocytes 10.1 % (1.7-9.3); % Neutrophils 62.1 % (42.2-75.2); Absolute Basophils 0.1 10^3/uL (0-0.2); Absolute Eosinophils 0.3 10^3/uL (0-0.7); Absolute Lymphocytes 2.7 10^3/uL (1.2-3.4); Absolute Monocytes 1.1 10^3/uL (0.1-0.6); Absolute Neutrophils 6.8 10^3/uL (1.4-6.5); Hematocrit 41.8 % (37.0-47.0); Hemoglobin 14.4 g/dL (12.0-16.0); Mean Corp Hgb Conc. 34.4 g/dL (33.0-37.0); Mean Corpuscular Hgb 31.9 pg (27.0-31.0); Mean Corpuscular Volume 92.7 fL (81.0-99.0); Mean Platelet Volume 10.1 fL (7.4-10.4); Nucleated Red Blood Cells % 0 %; Platelet Count 264 10^3/uL (130-400); Red Blood Cell Count 4.51 10^6/uL (4.20-5.40); Red Cell Dist. Width 12.7 % (11.5-14.5); White Blood Cell Count 10.9 10^3/uL (4.8-10.8)
[2023-12-10] MEDS: NSS 500 IV (12:11)
[2023-12-10 12:24] LABS: Blood Urea Nitrogen 11 mg/dl (7-17); Calcium 8.9 mg/dl (8.4-10.2); Carbon Dioxide 25 mmol/L (22-30); Chloride 109 mmol/L (98-107); Glucose 104 mg/dl (70-99); Sodium 137 mmol/L (135-145); eGFR > 60.00
[2023-12-10 12:30] LABS: Troponin I < 0.012 ng/ml
[2023-12-10 12:55] LABS: ALT (SGPT) 25 U/L (0-35); AST (SGOT) 30 U/L (14-36); Albumin 3.7 g/dl (3.5-5.0); Alkaline Phosphatase 72 U/L (38-126); Blood Urea Nitrogen 11 mg/dl (7-17); Calcium 9.1 mg/dl (8.4-10.2); Carbon Dioxide 24 mmol/L (22-30); Chloride 108 mmol/L (98-107); Glucose 126 mg/dl (70-99); Magnesium 1.9 mg/dl (1.6-2.3); Potassium 4.2 mmol/L (3.5-5.1); Sodium 139 mmol/L (135-145); Total Bilirubin 0.6 mg/dl (0.2-1.3); Total Protein 6.6 g/dl (6.3-8.2); eGFR > 60.00
--- NOTE | 2023-12-10 13:24 | HPS.HSE ---
Family Physician
-
Family Physician: Ace Cox
Chief Complaint
-
Palpitations and dizziness which started this morning.
History of Present Illness
62-year-old came to the hospital because of palpitations and chest discomfort. She took Eliquis and Inderal at home before coming in. Patient was in rapid A-fib on arrival and converted with a long pause when she went bradycardic into the 30s.
She was diaphoretic and heart rate went to 60s and blood pressure improved.Denies SOB or CP now.
Medical History
Past Medical History
Past Medical History: Reports Other
Additional Past Medical History:
Atrial flutter, hypertension, nephrolithiasis, history of small bowel obstruction, constipation, osteoporosis
Past Surgical History: Reports Other
Additional Past Surgical History:
Appendectomy, , right knee replacement
Social History
Tobacco: Non-smoker
Alcohol: None
Drug: None
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
Family History
Family History: Cancer (ovarian mom)
Allergies / Home Medications
Allergies reflects when Allergies were last updated in [facility].
Home Medications with original date entered in [facility]
Allergy/Medication List:
Allergies
Allergy/AdvReac Type Severity Reaction Status Date / Time
No Known Allergies Allergy Verified 12/10/23 10:21
Home Medications
cholecalciferol (vitamin D3) 25 mcg (1,000 unit) tablet (Vitamin D3) 25 mcg PO DAILY Supplement ##0 09/23/20
docosahexaenoic acid (dha)-epa 120 mg-180 mg capsule 1 cap PO DAILY Supplement 09/23/20
magnesium 250 mg tablet 250 mg PO DAILY Supplement ##0 09/23/20
apixaban 5 mg tablet (Eliquis) 5 mg PO BID #60 tabs 10/27/23
albuterol sulfate 2.5 mg/3 mL (0.083 %) solution for nebulization 2.5 mg inhalation R QID PRN shortness of breath or wheezing 12/10/23
amlodipine 10 mg tablet 10 mg PO DAILY 12/10/23
beclomethasone dipropionate 80 mcg/actuation HFA breath activated aerosol (Qvar RediHaler) 1 inh inhalation R DAILY PRN sob/wheezing 12/10/23
hydrocodone 5 mg-acetaminophen 325 mg tablet 1 tab PO BID PRN moderate pain 12/10/23
propranolol 60 mg capsule,24 hr,extended release 60 mg PO DAILY 12/10/23
vitamin B complex 1 tab PO DAILY 12/10/23
Review of Systems
-
A 12 point ROS was completed and negative except as noted: Yes
Cardiac: Reports Other (chest pressure )
Abdomen/GI: Denies Abdominal Pain
Physical Exam
Vital Signs
Vital Signs
Temp Pulse Resp BP Pulse Ox
99.0 F 68 20 98/53 95
12/10/23 10:20 12/10/23 13:00 12/10/23 13:00 12/10/23 13:00 12/10/23 13:00
Physical Exam
General: Well Nourished and No Apparent Distress
Respiratory: Clear
Cardiac: S1/S2 and Regular Rhythm
GI: Soft and Non Tender
Neuro: Awake, AO x 3 and Nonfocal/grossly intact
Psych: Intact Judgment/Insight
Laboratory Results
-
12/10/23 11:40
12/10/23 12:25
Laboratory Results
Total Bilirubin 0.6 mg/dl (0.2-1.3) 12/10/23 12:25
AST 30 U/L (14-36) 12/10/23 12:25
ALT 25 U/L (0-35) 12/10/23 12:25
Alkaline Phosphatase 72 U/L (38-126) 12/10/23 12:25
Troponin I < 0.012 ng/ml 12/10/23 11:40
Data Reviewed
-
Medical Tests (Nuc Med, Echo, EKG etc): Image Personally Visualized and interpreted (EKG-80 ventricular rate, ST is consistent with lateral ischemia)
Impression/Plan
-
IMPRESSION/PLAN:
# Rapid A-fib with conversion to sinus rhythm with a pause
Watch on telemetry diarrhea
Continue Eliquis
Hold Inderal till cards evaluates
Cardiology evaluation
TSH was 0.22-[id number]-bp 10/27/2023
Routine ECHO
# Posterolateral left seventh rib fracture seen on CT 11/18/23.
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
Hold Inderal and continue Norvasc.
# History of small bowel obstruction
# Osteoporosis
# Nephrolithiasis
# DVT prophylaxis-Eliquis
# Full code
--- NOTE | 2023-12-10 17:00 | CON.CAR ---
Consultation
Consultation Request
Date/Time Consultation Requested: December 10, 2023
Date/Time Consultation Performed: December 10, 2023
Requesting Provider: Hospitalist
Performing Provider: Dr. Fabricio Hoang
Reason for Consultation: Symptomatic sick sinus syndrome
Medical History
-
Chief Complaint: Palpitations and chest discomfort
History of Present Illness:
Primary care physician is Dr. Cox
Primary setup technician is Dr. Jarrell Wilson
62-year-old who presents to the emergency department due to symptoms of palpitations, dizziness and chest discomfort. Patient was in rapid A-fib on arrival and converted with a long pause when she went bradycardic into the 30s. She was diaphoretic
and heart rate went to 60s and blood pressure improved.
In the emergency department she was noted to have recurrence of atrial tachyarrhythmia with a conversion pause which appears to be in excess of 10 seconds.
Electrocardiogram on presentation December 10, 2023 is evaluated by me and finds atrial fibrillation with a rapid ventricular response, LVH, nonspecific ST and T wave abnormalities.
(I evaluated her EKG from October 27, 2023 which is consistent with atrial flutter and a rapid ventricular response)
Past medical history:
-Atrial flutter initially diagnosed October 27, 2023 spontaneously converting to sinus rhythm at the emergency department. She was discharged to home, started on oral anticoagulation. On propranolol for palpitations.l
-CHADSVASC = 2 (HTN, F)
-Dyslipidemia
-Hypertension
7 days of continuous heart rate and rhythm monitoring in October 2023 as an outpatient finds normal sinus rhythm with rare PACs and PVCs. 4 brief episodes of atrial tachycardia longest of which was 14 beats in duration.
Echocardiogram August 12, 2022 finds normal left ventricular size and function with ejection fraction of 60 to 65% and no significant valvular disease.
Social History
Tobacco: Non-Smoker
Alcohol: None
Drug: None
Employment: Employed
Family History
Family History: Reviewed & Not Pertinent
Allergies / Home Medications
Allergy/AdvReac Type Severity Reaction Status Date / Time
No Known Allergies Allergy Verified 12/10/23 10:21
�Medication �Instructions �Recorded �Confirmed �Type
cholecalciferol (vitamin D3) 25 25 mcg PO DAILY Supplement ##0 09/23/20 12/10/23 History
mcg (1,000 unit) tablet (Vitamin
D3)
docosahexaenoic acid (dha)-epa 120 1 cap PO DAILY Supplement 09/23/20 12/10/23 History
mg-180 mg capsule
magnesium 250 mg tablet 250 mg PO DAILY Supplement ##0 09/23/20 12/10/23 History
apixaban 5 mg tablet (Eliquis) 5 mg PO BID #60 tabs 10/27/23 12/10/23 Rx
albuterol sulfate 2.5 mg/3 mL 2.5 mg inhalation R QID PRN 12/10/23 12/10/23 History
(0.083 %) solution for nebulization shortness of breath or wheezing
amlodipine 10 mg tablet 10 mg PO DAILY 12/10/23 12/10/23 History
beclomethasone dipropionate 80 1 inh inhalation R DAILY PRN 12/10/23 12/10/23 History
mcg/actuation HFA breath activated sob/wheezing
aerosol (Qvar RediHaler)
hydrocodone 5 mg-acetaminophen 325 1 tab PO BID PRN moderate pain 12/10/23 12/10/23 History
mg tablet
propranolol 60 mg capsule,24 60 mg PO DAILY 12/10/23 12/10/23 History
hr,extended release
vitamin B complex 1 tab PO DAILY 12/10/23 12/10/23 History
Review of Systems
-
History Source: Patient
All other systems: Negative unless noted
Constitutional: Fatigue
EENT: No Symptoms
Respiratory: No Symptoms
Cardiac: Palpitations and Other (Dizziness)
Abdomen/GI: No Symptoms
: No Symptoms
Musculoskeletal: No Symptoms
Skin: No Symptoms
Endocrine: No Symptoms
Hematologic/Lymphatic: No Symptoms
Physical Exam
Vital Signs
Temp Pulse Resp BP Pulse Ox
99.0 F 73 18 96/72 96
12/10/23 10:20 12/10/23 16:30 12/10/23 16:30 12/10/23 16:00 12/10/23 15:45
Lab Results
12/10/23 11:40
12/10/23 12:25
Troponin I < 0.012 ng/ml 12/10/23 11:40
Physical Exam
General: Well Developed, Well Nourished, No Apparent Distress and Comfortable
HEENT: Normocephalic, Anicteric and Moist Mucous Membranes
Respiratory: Clear
Cardiac: S1/S2, Regular Rhythm and Murmur (Monitor prescription. Murmur no rubs.)
Breast: Deferred by me
GI: Soft, Non Tender, Non Distended and Normal Bowel Sounds
Rectal: Deferred by Provider
Musculoskeletal: No Clubbing, No Cyanosis and Edema (There is trace pretibial edema bilaterally.)
Skin: Warm and Dry
Neuro: Awake, Alert, Oriented and AO x 3
Psych: Calm
Impression / Plan
-
Impression :
-Sick sinus syndrome with long conversion pauses
-Atrial flutter initially diagnosed October 27, 2023 spontaneously converting to sinus rhythm at the emergency department. She was discharged to home, started on oral anticoagulation.
-Paroxysmal atrial fibrillation
-Tachycardia-bradycardia syndrome
-CHADSVASC = 2 (HTN, F)
-Dyslipidemia
-Hypertension
Recent data:
- 7 days of continuous heart rate and rhythm monitoring in October 2023 as an outpatient finds normal sinus rhythm with rare PACs and PVCs. 4 brief episodes of atrial tachycardia longest of which was 14 beats in duration.
- Echocardiogram August 12, 2022 finds normal left ventricular size and function with ejection fraction of 60 to 65% and no significant valvular disease.
Recommendations:
We had a long discussion regarding management options moving forward. She is symptomatic with her atrial arrhythmias. A simple rate control strategy would not improve her symptoms and would run the risk of continued and potentially longer
conversion pauses. We discussed the option of moving towards rhythm control strategy. Rhythm control using antiarrhythmic drugs would run the same risk of more severe conversion pauses. We discussed the possibility of catheter ablation. We also
discussed permanent pacemaker implantation to treat her symptomatic sick sinus syndrome. Permanent pacemaker implantation would allow rate control agents to be used more safely and would allow antiarrhythmic drug therapy to be used more safely if
we decided to move towards that.
She tells me she prefers to move towards permanent pacemaker implantation. I discussed the procedure in detail with her and answered all of her questions.
-Will plan for permanent pacemaker implantation on Tuesday
-I am reluctant to initiate any rate control or antiarrhythmic drug therapy at the moment given her markedly long conversion pauses she has demonstrated.
-Once pacemaker implantation is accomplished, we could start with intensifying rate control therapy and if this fails to control her symptoms we could then eventually consider rhythm control either medically or with catheter ablation.
-In preparation for pacemaker implantation on Tuesday, we will plan to hold Eliquis starting Tuesday.
Total time spent today was 80minutes in preparing to see the patient, seeing the patient and coordination of care. This included review of recent laboratory evaluations, cardiact testing, imaging studies, primary care rtecords, specialty
consultations, hospital records, as well as personally interviewing and examining the patient, which included discussion of their tests, review/ordering medications, and communicating with other healthcare professionals and also treatment planning
as well as counseling.
Data Reviewed
-
EKG: Tracing Personally Visualized and interpreted
Radiology: Report Reviewed by me
Medical Tests (Nuc Med, Echo etc): Report Reviewed by me
Labs: Labs Reviewed by me
Old Records: Reviewed
--- NOTE | 2023-12-10 17:14 | PTCARENOTE ---
patient arrived from the ER. monitor placed, NSR, oriented patient to room and surroundings. admission questions asked and completed. monitor shows NSR, VSS. patient c/o left rib pain from having bronchitis a month ago from coughing. also uses cane
from right knee replacement. troponin drawn and sent to lab. patient ordering her dinner.
[2023-12-10 17:38] LABS: Troponin I < 0.012 ng/ml
--- NOTE | 2023-12-10 18:06 | PTCARENOTE ---
Aquiles Batista. rides supervisor notified to put patient on schedule for dual chamber permanent pacemaker for Tuesday the .
[2023-12-10] MEDS: ELIQUIS 5 MG PO (20:02)
[2023-12-10 22:55] LABS: Troponin I < 0.012 ng/ml
[2023-12-11] VITALS (9 sets, daily range): BP systolic 121–146; BP diastolic 68–87
--- NOTE | 2023-12-11 00:01 | PTCARENOTE ---
Pt rec'd at change of shift awake,alert in sinus rhythm. third troponin resulted wnl. call peguero within reach.
--- NOTE | 2023-12-11 05:24 | PTCARENOTE ---
Pt states she slept on and off no complaints at this time. Remains sinus on telemetry.
[2023-12-11 05:31] LABS: Hematocrit 38.7 % (37.0-47.0); Hemoglobin 13.3 g/dL (12.0-16.0); Mean Corp Hgb Conc. 34.4 g/dL (33.0-37.0); Mean Corpuscular Hgb 32.4 pg (27.0-31.0); Mean Corpuscular Volume 94.4 fL (81.0-99.0); Mean Platelet Volume 10.5 fL (7.4-10.4); Platelet Count 236 10^3/uL (130-400); Red Cell Dist. Width 12.8 % (11.5-14.5); White Blood Cell Count 9.9 10^3/uL (4.8-10.8)
[2023-12-11 06:02] LABS: Blood Urea Nitrogen 14 mg/dl (7-17); Calcium 8.8 mg/dl (8.4-10.2); Carbon Dioxide 24 mmol/L (22-30); Chloride 108 mmol/L (98-107); Glucose 111 mg/dl (70-99); Potassium 4.2 mmol/L (3.5-5.1); Sodium 137 mmol/L (135-145); eGFR > 60.00
[2023-12-11] MEDS: MAGNESIUM OXIDE 250 MG PO (08:31)
[2023-12-11] MEDS: NORVASC 10 MG PO (08:31)
[2023-12-11] MEDS: VITAMIN D3 (cholecalciferol) 25 MCG PO (08:31)
[2023-12-11] MEDS: B COMPLEX w/VITAMIN C 1 CAPLET PO (08:31)
[2023-12-11] MEDS: ELIQUIS 5 MG PO (08:32)
--- NOTE | 2023-12-11 10:07 | W.PN.HOSP.TC ---
Today's Communication/Plan
-
Pacer tomorrow
Assessment / Plan
Assessment / Plan
feels OK. IN SR now
CVS: S1-S2 normal
Chest: CTA B/L
Abdomen: Soft, NT / Bowel sounds present
Extremities: No edema, normal pulses
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
# Rapid A-fib with conversion to sinus rhythm with a pause
Watch on telemetry
Continue Eliquis
Hold Inderal
Cardiology evaluation noted
TSH was 0.90-[id number]-[id number] 10/27/2023
Routine ECHO
Pacer placement tomorrow.
# Posterolateral left seventh rib fracture seen on CT 11/18/23.
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
Hold Inderal and continue Norvasc.
# History of small bowel obstruction
# Osteoporosis
# Nephrolithiasis
# DVT prophylaxis-Eliquis
# Full code
Anticipated Discharge: 24 - 48 hours
Subjective/Interval History
-
Date of Service: December 11, 2023
Objective Data
-
Labs:
Laboratory Results
12/11/23
05:08
WBC 9.9
Hgb 13.3
Hct 38.7
Plt Count 236
Sodium 137
Potassium 4.2
Chloride 108 H
Carbon Dioxide 24
BUN 14
Creatinine 0.4 L
Glucose 111 H
Calcium 8.8
Vital Signs:
Vital Signs
Temp Pulse Resp BP Pulse Ox
98.2 F 78 16 121/71 98
12/11/23 08:00 12/11/23 09:45 12/11/23 08:00 12/11/23 08:31 12/11/23 08:00
I&O
12/10/23 12/11/23 12/12/23
06:59 06:59 06:59
Intake Total 480 / 480
Balance 480 / 480
--- NOTE | 2023-12-11 12:24 | W.PN.CARDCBS ---
Today's Communication / Plan
-
Plan for permanent pacemaker implantation tomorrow
Impression / Plan
-
Impression :
-Sick sinus syndrome with long conversion pauses
-Atrial flutter initially diagnosed October 27, 2023 spontaneously converting to sinus rhythm at the emergency department. She was discharged to home, started on oral anticoagulation.
-Paroxysmal atrial fibrillation
-Tachycardia-bradycardia syndrome
-CHADSVASC = 2 (HTN, F)
-Dyslipidemia
-Hypertension
Recent data:
- 7 days of continuous heart rate and rhythm monitoring in October 2023 as an outpatient finds normal sinus rhythm with rare PACs and PVCs. 4 brief episodes of atrial tachycardia longest of which was 14 beats in duration.
- Echocardiogram August 12, 2022 finds normal left ventricular size and function with ejection fraction of 60 to 65% and no significant valvular disease.
Recommendations:
We had a long discussion regarding management options moving forward. She is symptomatic with her atrial arrhythmias. A simple rate control strategy would not improve her symptoms and would run the risk of continued and potentially longer
conversion pauses. We discussed the option of moving towards rhythm control strategy. Rhythm control using antiarrhythmic drugs would run the same risk of more severe conversion pauses. We discussed the possibility of catheter ablation. We also
discussed permanent pacemaker implantation to treat her symptomatic sick sinus syndrome. Permanent pacemaker implantation would allow rate control agents to be used more safely and would allow antiarrhythmic drug therapy to be used more safely if
we decided to move towards that.
She tells me she prefers to move towards permanent pacemaker implantation. I discussed the procedure in detail with her and answered all of her questions.
-Will plan for permanent pacemaker implantation on Tuesday
-I am reluctant to initiate any rate control or antiarrhythmic drug therapy at the moment given her markedly long conversion pauses she has demonstrated.
-Once pacemaker implantation is accomplished, we could start with intensifying rate control therapy and if this fails to control her symptoms we could then eventually consider rhythm control either medically or with catheter ablation.
-In preparation for pacemaker implantation on Tuesday, we will plan to hold Eliquis starting this evening, then resume post procedure.
She is left-handed so we will plan for right sided permanent pacemaker implantation.
I explained the procedure to her in detail and she wishes to proceed. Informed consent obtained by me today.
All of her questions answered. Also discussed with her family who is at bedside.
Total time spent today was 80minutes in preparing to see the patient, seeing the patient and coordination of care. This included review of recent laboratory evaluations, cardiact testing, imaging studies, primary care rtecords, specialty
consultations, hospital records, as well as personally interviewing and examining the patient, which included discussion of their tests, review/ordering medications, and communicating with other healthcare professionals and also treatment planning
as well as counseling.
Progress Note - Hospital Receptionist
Subjective
Date of Service: December 11, 2023
Feeling well this morning with no chest pain shortness of breath palpitations or dizziness
Objective
Labs:
12/11/23 05:08
12/11/23 05:08
Labs
Hgb 13.3 g/dL (12.0-16.0) 12/11/23 05:08
Hct 38.7 % (37.0-47.0) 12/11/23 05:08
Plt Count 236 10^3/uL (130-400) 12/11/23 05:08
Sodium 137 mmol/L (135-145) 12/11/23 05:08
Potassium 4.2 mmol/L (3.5-5.1) 12/11/23 05:08
BUN 14 mg/dl (7-17) 12/11/23 05:08
Creatinine 0.4 mg/dL (0.6-1.0) L 12/11/23 05:08
Glucose 111 mg/dl (70-99) H 12/11/23 05:08
Troponins
12/10/23 12/10/23 12/10/23
11:40 17:07 22:27
Troponin I < 0.012 < 0.012 < 0.012
Vital Signs and I&O:
Vital Signs
Temp Pulse Resp BP Pulse Ox
98.2 F 80 16 141/87 98
12/11/23 11:27 12/11/23 11:27 12/11/23 11:27 12/11/23 11:27 12/11/23 12:18
Vital Signs
Temp Pulse Resp BP Pulse Ox
98.2 F 80 16 141/87 98
12/11/23 11:27 12/11/23 11:27 12/11/23 11:27 12/11/23 11:27 12/11/23 12:18
Intake & Output
12/09/23 12/10/23 12/11/23 12/12/23
06:59 06:59 06:59 06:59
Intake Total 480 / 480
Balance 480 / 480
Physical Exam
Physical Exam
Well-appearing, no acute distress
Regular rate and rhythm with normal S1 and S2 no S3 no surgery 1/6 apical holosystolic murmur no rubs.
Lungs are clear to auscultation bilaterally without wheezes rales or rhonchi
Extremities show no clubbing cyanosis or edema
Neurologic seems grossly nonfocal
--- NOTE | 2023-12-11 15:06 | PTCARENOTE ---
received patient this am, discussed permanent pacemaker, patient is still not understanding why she needs a pacemaker. Dr. Hoang making rounds. monitor shows NSR, VSS will continue to offer emotional support.
[2023-12-12] VITALS (10 sets, daily range): BP systolic 112–168; BP diastolic 62–89
--- NOTE | 2023-12-12 00:02 | PTCARENOTE ---
Pt is AOX3 and pleasant. Assessment noted as documented. Tele- SR. Ambulatory around room w/ steady gait. Offers no c/o at this time. Aware of NPO status for PPM tomorrow. Currently in bed; call marielena w/in reach.
[2023-12-12 05:10] LABS: Blood Urea Nitrogen 14 mg/dl (7-17); Calcium 8.7 mg/dl (8.4-10.2); Carbon Dioxide 23 mmol/L (22-30); Chloride 110 mmol/L (98-107); Glucose 114 mg/dl (70-99); Potassium 4.1 mmol/L (3.5-5.1); Sodium 139 mmol/L (135-145); eGFR > 60.00
[2023-12-12] MEDS: NORVASC 10 MG PO (08:41)
[2023-12-12] MEDS: MAGNESIUM OXIDE 250 MG PO (08:41)
[2023-12-12] MEDS: VITAMIN D3 (cholecalciferol) 25 MCG PO (08:42)
[2023-12-12] MEDS: FLUSH (NSS) 1 FLUSH IV (08:42)
[2023-12-12] MEDS: B COMPLEX w/VITAMIN C 1 CAPLET PO (08:42)
--- NOTE | 2023-12-12 10:20 | W.PN.HOSP.TC ---
Today's Communication/Plan
-
pace maker
Assessment / Plan
Assessment / Plan
feels OK. IN SR now
CVS: S1-S2 normal
Chest: CTA B/L
Abdomen: Soft, NT / Bowel sounds present
Extremities: No edema, normal pulses
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
# Rapid A-fib with conversion to sinus rhythm with a pause
Watch on telemetry
Eliquis on hold for pacer
Hold Inderal
Cardiology evaluation noted
TSH was 0.31-[id number]-iq 10/27/2023
Pacer placement
# Posterolateral left seventh rib fracture seen on CT 11/18/23.
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
Hold Inderal and continue Norvasc.
# History of small bowel obstruction
# Osteoporosis
# Nephrolithiasis
# DVT prophylaxis-Eliquis on hold for pacer
# Full code
Pt declined when I asked if i need to talk to family.
D/W RN
Anticipated Discharge: Within 24 hours
Subjective/Interval History
-
Date of Service: December 12, 2023
Objective Data
-
Labs:
Laboratory Results
12/12/23
04:15
Sodium 139
Potassium 4.1
Chloride 110 H
Carbon Dioxide 23
BUN 14
Creatinine 0.4 L
Glucose 114 H
Calcium 8.7
Vital Signs:
Vital Signs
Temp Pulse Resp BP Pulse Ox
97.8 F 81 16 144/62 96
12/12/23 07:45 12/12/23 08:41 12/12/23 07:45 12/12/23 08:41 12/12/23 07:45
I&O
12/11/23 12/12/23 12/13/23
06:59 06:59 06:59
Intake Total 480 / 480 240 / 240
Balance 480 / 480 240 / 240
--- NOTE | 2023-12-12 11:42 | PTCARENOTE ---
received patient this am, monitor shows NSR, Echo being completed at bedside. patient remains NPO for PP today.
--- NOTE | 2023-12-12 12:28 | CM ---
spoke to pt in room, she is prev indep, lives with her son and s.o. in a 2 story home with no steps to enter. she has a cane and a walker at home to use if needed. plan is for dc to home when medically stable.
--- NOTE | 2023-12-12 12:59 | PTCARENOTE ---
report given to general laborer.
--- NOTE | 2023-12-12 15:01 | ITS.CL.PACE ---
[facility] - Pacemaker Implant
Pacemaker Implant
Procedure Report:
PACEMAKER IMPLANT REPORT
Primary Care Provider: Dr. Dontao Cox
Primary dialysis patient care technician: Dr. Jarrell Wilson
Date of Procedure: December 12, 2023
Procedure:
Implantation of dual-chamber permanent pacemaker utilizing the left bundle branch for conduction system pacing
Indication/Diagnosis:
Non-reversible symptomatic bradycardia due to sinus node dysfunction.
After informed consent was obtained, 'time out' was called and confirmed, the patient was prepped and draped in a sterile fashion. Lidocaine with epi was used for local anesthesia. Central venous access was obtained via subclavian venipuncture. An
incision was made along the left chest and a pre-pectoral pocket was formed. Using a Seldinger technique and peel-away sheaths, the pacing leads were placed under fluoroscopic guidance.
Fluoroscopy was used to determine likely anatomic site for left bundle branch pacing. The Moverati C315 sheath was used to deliver the Medtronic 3830 Selectsecure pacing lead with the helix exposed just exposed from the sheath tip during continuous
monitoring when pacemapping the septum during gentle clockwise rotation to obtain a paced QRS morphology of a W pattern in lead V1. Once the suspected optimal site was identified, lead deployment was performed with several rapid rotations as paced
QRS morphology was intermittently monitored until a paced QRS complex in lead V1 demonstrated development of an R wave (qR or rSR).
Unipolar pacing impedance dropped by approximately 200 ohms suggesting it had reached the left ventricular subendocardial.
Stable VEgm injury current is present throughout lead position and at end of case. suggesting there was no perforation through the septum into the LV cavity.
Final unipolar pacing impedance is 900-1000 Ohms
Unipolar pacing threshold is stable at 1 V @ 0.4 ms.
Final conduction system paced QRS complex duration is 109 ms
LVAT is 62 ms and peak V5 -> peak V1 timing is 74 ms
IMPLANTS:
Medtronic [id number], Left Pectoral
RA: Medtronic 5076-45 , RAA
RV: Medtronic 3830, Interventricular septum at LBB
DEVICE TESTING:
Sensing: RA 3.1 mV, RV 8.3 mV
Capture: RA 0.75 V@0.4ms, RV 1 V@0.4ms
Ohms: RA 646, RV 855
FINAL PROGRAMMING
Adrian Pacing: AAIR+ 60-130 ppm
COMPLICATIONS:
None
CONCLUSIONS:
1: Successful implant of dual chamber permanent pacemaker utilizing Left Bundle Branch conduction system capture for pacing. [ ] Overall findings are most consistent with [ ] LBB capure [ ] Left Ventricular Septal capture. Note that both LBB
capture and Left Ventricular Septal capture has been associated with improved left ventricular systolic function via cardiac resynchronization.
RECOMMENDATIONS:
Now that pacemaker implantation is accomplished, we will start with intensifying rate control therapy and if this fails to control her symptoms we could then eventually consider rhythm control either medically or with catheter ablation. She had
been on propranolol as an outpatient. Rather than propranolol will initiate Toprol-XL 25 mg twice daily
Resume Eliquis starting tomorrow
If remains stable overnight, should be acceptable for discharge tomorrow morning.
Copy to:
Dr. Donato Cox
Dr. Jarrell Wilson
[2023-12-12] MEDS: NORCO 5/325 1 TABLET PO ×2 (15:04→20:59)
--- NOTE | 2023-12-12 15:06 | PTCARENOTE ---
patient returned from PP, RCW Acuseal, pressure dsg. immobilizer. patient is having 6 out of 10 pain at site, hydrocodone po given as ordered. site is D/I, no hematoma, no ecchymosis. also c/o numbness is fingers and right arm, loosened immobilizer
which helped. patient is still sleepy, encouraged patient to rest. EKG completed.
--- NOTE | 2023-12-12 16:14 | PTCARENOTE ---
post chest xray completed.
[2023-12-12] MEDS: ANCEF 5 IV (19:36)
[2023-12-12] MEDS: TOPROL XL 25 MG PO (19:36)
--- NOTE | 2023-12-12 23:02 | PTCARENOTE ---
R arm immobilizer on. R chest wall aquacel and press. dsg intact no hematoma, no ecchymosis. Pt c/o incision site pain 01/15. Hydrocodone PO given as ordered. Tele- SR. Assessment completed as documented. Currently in bed; call marielena w/in reach.
[2023-12-13 02:02] VITALS: BP 135/62
[2023-12-13] MEDS: ANCEF 5 IV (02:07)
[2023-12-13 02:11] LABS: Hematocrit 40.1 % (37.0-47.0); Mean Corp Hgb Conc. 34.9 g/dL (33.0-37.0); Mean Corpuscular Hgb 32.1 pg (27.0-31.0); Mean Platelet Volume 9.7 fL (7.4-10.4); Platelet Count 230 10^3/uL (130-400); Red Blood Cell Count 4.36 10^6/uL (4.20-5.40); Red Cell Dist. Width 12.5 % (11.5-14.5); White Blood Cell Count 10.3 10^3/uL (4.8-10.8)
[2023-12-13 02:26] LABS: Blood Urea Nitrogen 10 mg/dl (7-17); Calcium 9.1 mg/dl (8.4-10.2); Carbon Dioxide 23 mmol/L (22-30); Chloride 107 mmol/L (98-107); Glucose 110 mg/dl (70-99); Potassium 4.1 mmol/L (3.5-5.1); Sodium 137 mmol/L (135-145); eGFR > 60.00
[2023-12-13] MEDS: VITAMIN D3 (cholecalciferol) 25 MCG PO (07:17)
[2023-12-13] MEDS: MAGNESIUM OXIDE 250 MG PO (07:17)
[2023-12-13] MEDS: B COMPLEX w/VITAMIN C 1 CAPLET PO (07:17)
[2023-12-13] MEDS: NORVASC 10 MG PO (07:17)
[2023-12-13] MEDS: TOPROL XL 25 MG PO (07:19)
[2023-12-13 08:00] VITALS: BP 136/70
--- NOTE | 2023-12-13 09:58 | W.PN.CARDCBS ---
Addendum entered and electronically signed by Justin Vargas MD 12/13/23 13:21:
I saw and examined the patient.
The BASKETBALL ASSEMBLER or PA's note was reviewed and I agree with the note.
Comment: General: Well developed, well nourished in NAD.
Neck: Supple, no JVD, HJR, carotids +2 B/L, no bruits bilaterally.
Heart: Non displaced PMI, RRR, no murmurs, No S3, S4, no rubs.
Lungs: Clear to auscultation bilaterally, no wheeze, rhonchi, rubs bilaterally,
normal expiratory phase.
Pacer dressings noted
Extremities: No clubbing, cyanosis or edema bilaterally.
Neuro: Grossly nonfocal, awake, alert and oriented x3.
Stable cardiology status for discharge. Resume Eliquis tonight. Toprol was started in place of propranolol. Outpatient follow-up arranged
Original Note:
Today's Communication / Plan
-
s/p PPM
propranolol stopped in favor of toprol
eliquis to be resumed tonight
in SR
OP cardiac follow up arranged
Impression / Plan
-
Impression :
-Sick sinus syndrome with long conversion pauses
-Atrial flutter initially diagnosed October 27, 2023 spontaneously converting to sinus rhythm at the emergency department. She was discharged to home, started on oral anticoagulation.
-Paroxysmal atrial fibrillation
-Tachycardia-bradycardia syndrome s/p Medtronic PPM 12/12/23
-CHADSVASC = 2 (HTN, F)
-Dyslipidemia
-Hypertension
-fatty liver
-History of L 7th rib fracture 11/2023
Recent data:
- 7 days of continuous heart rate and rhythm monitoring in October 2023 as an outpatient finds normal sinus rhythm with rare PACs and PVCs. 4 brief episodes of atrial tachycardia longest of which was 14 beats in duration.
- Echocardiogram August 12, 2022 finds normal left ventricular size and function with ejection fraction of 60 to 65% and no significant valvular disease.
Recommendations:
-with tachybrady syndrome
-s/p Medtronic PPM placement 12/12/23
-CXR without PTX, acute processes
-hgb stable at 14
-no afib/aflutter overnight on review of tele.
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 now on toprol 25mg BID
-R chest site with aquacel dressing c/d/i. to resume eliquis 5mg BID tonight
-dependent on burden, symptoms upon OP PPM interrogation, consider need for AAD therapy +/- ablation.
-activity restrictions/limitations discussed with patient
-continue OP norvasc
-ok for DC today from cardiac standpoint
-OP cardiac follow up arranged
-d/w nursing
-d/w hospitalist via TT
Progress Note - Merchandise Supervisor
Subjective
Date of Service: December 13, 2023
reports no issues overnight.
Objective
Labs:
12/13/23 02:06
12/13/23 02:06
Labs
Hgb 14.0 g/dL (12.0-16.0) 12/13/23 02:06
Hct 40.1 % (37.0-47.0) 12/13/23 02:06
Plt Count 230 10^3/uL (130-400) 12/13/23 02:06
Sodium 137 mmol/L (135-145) 12/13/23 02:06
Potassium 4.1 mmol/L (3.5-5.1) 12/13/23 02:06
BUN 10 mg/dl (7-17) 12/13/23 02:06
Creatinine 0.4 mg/dL (0.6-1.0) L 12/13/23 02:06
Glucose 110 mg/dl (70-99) H 12/13/23 02:06
Troponins
12/10/23 12/10/23 12/10/23
11:40 17:07 22:27
Troponin I < 0.012 < 0.012 < 0.012
Vital Signs and I&O:
Vital Signs
Temp Pulse Resp BP Pulse Ox
98 F 79 16 136/70 94
12/13/23 07:58 12/13/23 08:15 12/13/23 07:58 12/13/23 08:00 12/13/23 07:58
Vital Signs
Temp Pulse Resp BP Pulse Ox
98 F 79 16 136/70 94
12/13/23 07:58 12/13/23 08:15 12/13/23 07:58 12/13/23 08:00 12/13/23 07:58
Intake & Output
12/11/23 12/12/23 12/13/23 12/14/23
07:59 07:59 07:59 07:59
Intake Total 480 / 480 240 / 240 480 / 480
Balance 480 / 480 240 / 240 480 / 480
Physical Exam
Physical Exam
GEN: No distress, awake, alert, oriented x3. sitting in chair
HEENT: supple, anicteric, mmm, eomi
LUNGS: CTA B/L, no wheezes/rales
CV: Reg, S1/S2, no murmur
ABD: soft, BS+, NT/ND
EXT: No cyanosis, clubbing, edema
NEURO: Gross non-focal
SKIN: Warm, pink, dry. No rash. R chest site with aquacel dressing c/d/i
--- NOTE | 2023-12-13 10:37 | W.PN.HOSP.TC ---
Today's Communication/Plan
-
Discharge
Assessment / Plan
Assessment / Plan
feels OK. IN SR now
CVS: S1-S2 normal
Chest: CTA B/L, right-sided pacemaker no bleeding noted
Abdomen: Soft, NT / Bowel sounds present
Extremities: No edema, normal pulses
PLANS EXAMINER: Non focal exam
# Rapid A-fib with conversion to sinus rhythm with a pause
Eliquis on hold for pacer, can be resumed tonight
Status post pacemaker placement 12/12/2023
TSH was 0.87-[id number]-[id number] 10/27/2023
# Posterolateral left seventh rib fracture seen on CT 11/18/23.
# HTN -metoprolol XL started in the place of propranolol. Also on Norvasc
# History of small bowel obstruction
# Osteoporosis
# Nephrolithiasis
# DVT prophylaxis-Eliquis on hold for pacer, to be restarted tonight
# Full code
Pt declined when I asked if i need to talk to family.
D/W RN
Discussed with cardiology-cleared for discharge
Discharge time 32 min
Anticipated Discharge: Today
Subjective/Interval History
-
Date of Service: December 13, 2023
Objective Data
-
Labs:
Laboratory Results
12/13/23
02:06
WBC 10.3
Hgb 14.0
Hct 40.1
Plt Count 230
Sodium 137
Potassium 4.1
Chloride 107
Carbon Dioxide 23
BUN 10
Creatinine 0.4 L
Glucose 110 H
Calcium 9.1
Vital Signs:
Vital Signs
Temp Pulse Resp BP Pulse Ox
98 F 79 16 136/70 94
12/13/23 07:58 12/13/23 08:15 12/13/23 07:58 12/13/23 08:00 12/13/23 07:58
I&O
12/12/23 12/13/23 12/14/23
06:59 06:59 06:59
Intake Total 240 / 240 480 / 480
Balance 240 / 240 480 / 480
--- NOTE | 2023-12-13 10:44 | W.DS.TRANS ---
Addendum entered and electronically signed by Gisselle Mo MD 12/14/23 08:40:
Dictation- [id number]
Original Note:
DC Summary - Site Superintendent
-
Discharge Instructions:
Discharge Diagnosis/Procedures Pacemaker implant, atrial fibrillation,
hypertension
Diet As tolerated
Activity As tolerated
Driving Restrictions No driving for 1 week
Blood Work Hemoglobin A1c as outpatient
Instructions:
Stand-Alone Forms: DC Inst - Implanted Device
Changes to Home Medications: Yes
Discharge Medications:
DC Medications w/original date entered in [facility]
cholecalciferol (vitamin D3) 25 mcg (1,000 unit) tablet (Vitamin D3) 25 mcg PO DAILY Supplement ##0 09/23/20
docosahexaenoic acid (dha)-epa 120 mg-180 mg capsule 1 cap PO DAILY Supplement 09/23/20
magnesium 250 mg tablet 250 mg PO DAILY Supplement ##0 09/23/20
albuterol sulfate 2.5 mg/3 mL (0.083 %) solution for nebulization 2.5 mg inhalation R QID PRN shortness of breath or wheezing 12/10/23
amlodipine 10 mg tablet 10 mg PO DAILY Blood Pressure 12/10/23
beclomethasone dipropionate 80 mcg/actuation HFA breath activated aerosol (Qvar RediHaler) 1 inh inhalation R DAILY PRN sob/wheezing 12/10/23
hydrocodone 5 mg-acetaminophen 325 mg tablet 1 tab PO BID PRN moderate pain 12/10/23
vitamin B complex 1 tab PO DAILY Supplement 12/10/23
apixaban 5 mg tablet (Eliquis) 5 mg PO BID Blood clot prevention/tx #60 tabs 12/13/23
metoprolol succinate 25 mg tablet,extended release 24 hr 25 mg PO BID Blood pressure #60 tabs 12/13/23
Home Medication Changes
Inderal changed to Metoprolol
Pending Results: No
[2023-12-13 11:20] VITALS: BP 141/91
--- NOTE | 2023-12-13 12:10 | PTCARENOTE ---
Pt denies any incisional pain or discomfort. Right pacer site clean and dry with aquacell dressing intact. OOB ad eben in the room with no c/o. Pt discharged to home with a family member. Discharge instructions given and reviewed with good
understanding.
== END 2023-12-13 12:10 | disposition home or self-care (01) | DRG 243 ==
LOC: IVU 15:08
PROVIDERS: Nurse Practitioner; Physician Assistant; ADMITTING PHYSICIAN Hospitalist; CONSULT PHYSICIAN Internal Medicine Cardiovascular Disease; EMERGENCY PHYSICIAN Emergency Medicine; FAMILY PHYSICIAN Internal Medicine
PROC: 02H63JZ Insertion of Pacemaker Lead into Right Atrium, Percutaneous Approach (ICD-10-PCS; 2023-12-12)
PROC: 02HK3JZ Insertion of Pacemaker Lead into Right Ventricle, Percutaneous Approach (ICD-10-PCS; 2023-12-12)
PROC: 0JH606Z Insertion of Pacemaker, Dual Chamber into Chest Subcutaneous Tissue and Fascia, Open Approach (ICD-10-PCS; 2023-12-12)
DX: I49.5 Sick sinus syndrome (principal); I48.92 Unspecified atrial flutter; I48.0 Paroxysmal atrial fibrillation; I11.9 Hypertensive heart disease without heart failure; M81.0 Age-related osteoporosis without current pathological fracture; N20.0 Calculus of kidney
CPT/HCPCS: 33208; 71045; 80048; 80053; 83735; 84484; 85025; 85027; 93005; 93306; 96360; 99285; C1769; C1785; C1887; C1892; C1898; Q9967

== ENCOUNTER 2023-12-20 13:12 | Emergency (ER) | payer OTHER, SELFPAY ==
[2023-12-20 13:16] VITALS: BP 143/68; BMI 40.9
[2023-12-20 14:00] VITALS: BP 137/69
--- NOTE | 2023-12-20 15:37 | ED.GENMED ---
History of Present Illness
General
Chief Complaint: Musculo-Skeletal Complaint
Source: patient and family
Exam Limitations: none
Time Seen by Provider: 12/20/23 13:27
Nursing documentation reviewed up to this point in time: agreed with
Travel History
Have you had any contact with someone who has COVID-19?: No
Do you have any symptoms of coronavirus? Fever > 100 degrees, chills, cough, shortness of breath, sore throat, loss of taste or smell, muscle aches, or headache?: No
History of Present Illness
History of Present Illness:
63-year-old female with past medical history of a flutter currently on Eliquis, hypertension presenting to the emergency department today with concerns of right-sided knee discomfort after twisting her knee feeling a mild popping sensation. Ongoing
discomfort since difficulty walking since over the past few hours. Did have a surgery to the knee in the past. Brought in by EMS due to significant pain while walking. Denies additional concerns.
Past History
Past History
ED Past Medical History: Arrthythmia, HTN, Hypercholesterolemia and Other (Kidney stones)
ED Past Surgical History: Appendectomy and
Social History
Tobacco: Non-smoker
Alcohol: None
Drug: None
Personal:
Living: with family
Employment: Employed
Family History
Family History: Other
Review of Systems
Review of Systems
Allergies reviewed?: Yes
All Other Systems: ROS reviewed and negative except as documented in HPI and ROS
Phy Exam
Physical Exam
Physical Exam:
GENERAL: Alert , in no apparent distress
EYE: pupils equal and reactive
NECK: Supple, no significant adenopathy.
ENT: o/p clr, mmm.
CARDIAC: Regular rate and rhythm .
LUNGS: Clear breath sounds bilaterally, no acute respiratory distress, no wheezes/rales/rhonchi
ABDOMEN: Soft, without focal tenderness, no r/g, no cvat
NEUROLOGICAL: Alert and oriented, no focal neuro deficits
SKIN: Warm and dry, skin intact.
MUSCULOSKELETAL: Good range of motion of the right knee no joint laxity increased discomfort with anterior drawer and Arturo's no edema, well perfused.
PSYCH: Normal and appropriate interaction.
Course
Orders/Labs/Results
Orders:
Orders
12/20/23 13:15
Knee, Right 4 or More Views [CR Knee- Right 4 Or More View*] Urgent
Comment:
Reason For Exam: pain/decreased ROM
12/20/23 15:14
Knee Immobilizer Right-Treatme ONCE
Vital Signs
Initial and Last Documented VS:
Initial Vital Signs
Temp Pulse Resp BP Pulse Ox
98.2 F 83 25 143/68 97
12/20/23 13:16 12/20/23 13:16 12/20/23 13:16 12/20/23 13:16 12/20/23 13:16
Last Documented Vital Signs
Temp Pulse Resp BP Pulse Ox
98.2 F 83 25 143/68 97
12/20/23 13:16 12/20/23 13:16 12/20/23 13:16 12/20/23 13:16 12/20/23 13:16
MDM/Problems Addressed
MDM/Problems Addressed:
63-year-old female presenting to the emergency department today with concerns of right-sided knee discomfort after stepping awkward while at work. Difficulty ambulating since brought in by EMS. Here she has increased discomfort with range of
motion of the knee but no redness or warmth good distal pulses and neurologic function does have some increased discomfort with Arturo's test. X-ray without signs of emergent injury patient with likely internal knee derangement plan for
symptomatic treatment and follow-up with Ortho. Return precautions given.
*Critical Care Note
Total Time (30-74mins, 75-104mins- exclusive of procedures): Not Applicable
ED Attending Note
-
Portions of this chart may have been created with voice recognition software.� Occasional wrong word or��sound alike� substitutions may have occurred due to the inherent limitations of voice recognition software.
Discharge Plan
Departure
Patient Disposition: Home (Routine Discharge)
Date of Disposition: 12/20/23
Time of Disposition: 15:38
Patient with high blood pressure during this ER visit?: No
Condition: Good
Covid-19: Not Applicable
Discharge Problem:
Internal derangement of knee
Instructions: Knee Immobilizer (DC), Knee Sprain (DC)
Prescriptions:
No Action
magnesium 250 mg Tablet
250 mg PO DAILY Qty: 0
docosahexaenoic acid-epa 1 CAP capsule
1 cap PO DAILY
cholecalciferol (vitamin D3) [Vitamin D3] 25 mcg (1,000 unit) Tablet
25 mcg PO DAILY Qty: 0
amlodipine 10 mg tablet
10 mg PO DAILY
vitamin B complex Tablet
1 tab PO DAILY
Qvar RediHaler 80 mcg/actuation HFA aerosol breath activated
1 inh INHALATION R DAILY PRN (Reason: sob/wheezing)
albuterol sulfate 2.5 mg /3 mL (0.083 %) solution for nebulization
2.5 mg inhalation R QID PRN (Reason: shortness of breath or wheezing)
hydrocodone-acetaminophen 5-325 mg tablet
1 tab PO BID PRN (Reason: moderate pain)
Patient Comments:
12/10/2023: last filled 11/19/23, 12 tabs for 6 days from [facility]
metoprolol succinate 25 mg Tablet Extended Release 24 Hr
25 mg PO BID Qty: 60 0RF
Eliquis 5 mg tablet
5 mg PO BID Qty: 60 0RF
Referrals:
Sukhdev Gray MD [Active] - Follow up in 5-7 days
Ace Cox MD [Family Provider] -
Activity Restrictions/Additional Instructions:
You came to the emergency department today with concerns of a knee injury. Here your x-ray did not show any emergent findings you likely have internal knee injury. Please rest ice compress and elevate and follow-up closely with orthopedic surgeon.
Return to the emergency department for any worsening, new or concerning symptoms.
Interventions
Interventions:
*Risk Screen - Suicide Last Done: 12/20/23 13:16
*General Assessment Last Done: 12/20/23 13:16
*Neglect/Abuse Screening Last Done: 12/20/23 13:16
Discharge Date and Time
Print Language: KINYARWANDA
== END 2023-12-20 16:11 | disposition home or self-care (01) ==
LOC: EMR 13:12
PROVIDERS: EMERGENCY PHYSICIAN Emergency Medicine; FAMILY PHYSICIAN Internal Medicine
DX: M23.91 Unspecified internal derangement of right knee (principal); X50.1XXA Overexertion from prolonged static or awkward postures, initial encounter; I10 Essential (primary) hypertension; E78.00 Pure hypercholesterolemia, unspecified; Z87.442 Personal history of urinary calculi; Z90.49 Acquired absence of other specified parts of digestive tract; Z96.651 Presence of right artificial knee joint
CPT/HCPCS: 99283; 29505; 73564

== ENCOUNTER → 2024-01-04 09:00 | Outpatient (REF) | payer OTHER, SELFPAY | LOC: DHSLP 09:00 | PROVIDERS: ATTENDING PHYSICIAN Internal Medicine Critical Care Medicine; FAMILY PHYSICIAN Internal Medicine | DX: G47.30 Sleep apnea, unspecified (principal); G47.00 Insomnia, unspecified; R06.83 Snoring | CPT/HCPCS: 95810 ==

== ENCOUNTER 2024-01-24 12:12 | Emergency (ER) | payer OTHER, SELFPAY ==
[2024-01-24 12:18] VITALS: BP 144/101
[2024-01-24] MEDS: DILAUDID 0.5 MG IV (12:55)
[2024-01-24 13:07] LABS: % Basophils 0.5 % (0-2); % Eosinophils 0.5 % (0-6); % Immature Granulocytes 0.7 % (0-0.5); % Lymphocytes 14.9 % (20.5-51.1); % Neutrophils 75.4 % (42.2-75.2); Absolute Basophils 0.1 10^3/uL (0-0.2); Absolute Eosinophils 0.1 10^3/uL (0-0.7); Absolute Immature Granulocytes 0.1 10^3/uL (0-0.05); Absolute Monocytes 1.1 10^3/uL (0.1-0.6); Absolute Neutrophils 10.1 10^3/uL (1.4-6.5); Hematocrit 41.8 % (37.0-47.0); Hemoglobin 14.4 g/dL (12.0-16.0); Mean Corp Hgb Conc. 34.4 g/dL (33.0-37.0); Mean Corpuscular Hgb 31.5 pg (27.0-31.0); Mean Corpuscular Volume 91.5 fL (81.0-99.0); Mean Platelet Volume 10.4 fL (7.4-10.4); Nucleated Red Blood Cells % 0 %; Platelet Count 285 10^3/uL (130-400); Red Blood Cell Count 4.57 10^6/uL (4.20-5.40); White Blood Cell Count 13.4 10^3/uL (4.8-10.8)
[2024-01-24 13:20] LABS: Blood Urea Nitrogen 12 mg/dl (7-17); Calcium 9.5 mg/dl (8.4-10.2); Carbon Dioxide 24 mmol/L (22-30); Chloride 106 mmol/L (98-107); Estimated Creatinine Clearance 100 ml/min; Glucose 125 mg/dl (70-99); Potassium 3.9 mmol/L (3.5-5.1); Sodium 139 mmol/L (135-145); eGFR > 60.00
[2024-01-24 14:11] LABS: Erythrocyte Sed Rate 12 mm/hour (0-20)
--- NOTE | 2024-01-24 15:20 | ED.GENMED ---
History of Present Illness
General
Chief Complaint: Musculo-Skeletal Complaint
Source: patient
Exam Limitations: none
Time Seen by Provider: 01/24/24 12:34
Travel History
Have you had any contact with someone who has COVID-19?: No
Do you have any symptoms of coronavirus? Fever > 100 degrees, chills, cough, shortness of breath, sore throat, loss of taste or smell, muscle aches, or headache?: No
History of Present Illness
History of Present Illness:
Patient with sudden severe right knee pain. Occurred with no significant activity this morning. Has had this happen a few times in the past. Knee replacement February. No fever chills or other complaints. Has been seen by orthopedics
locally.
Past History
Past History
ED Past Medical History: Arrthythmia, HTN, Hypercholesterolemia and Other (Kidney stones)
ED Past Surgical History: Appendectomy and
Social History
Tobacco: Non-smoker
Alcohol: None
Drug: None
Personal:
Living: with family
Employment: Employed
Family History
Family History: Other
Review of Systems
Review of Systems
All Other Systems: Not applicable
Phy Exam
Physical Exam
Physical Exam:
GENERAL: Alert and oriented in no apparent distress
CARDIAC: Regular rate and rhythm without any obvious murmurs.
LUNGS: Clear breath sounds,normal
ABDOMEN: Soft, without focal tenderness or distention
NEUROLOGICAL: Alert and oriented , grossly non-focal
SKIN: Warm and dry, no rash or lesion, no discoloration, skin intact.
MUSCULOSKELETAL: Moderate joint effusion right knee. No warmth or erythema. Healed scar surgically. Decreased flexion. Mild tenderness over the lateral hip. No thigh or calf warmth or erythema
PSYCH: Normal and appropriate interaction.
Course
Orders/Labs/Results
Orders:
Orders
01/24/24 12:43
IV Insert/Care/Rem.- Treatment PRN
Femur, Right 2 View [CR Femur - Right Min 2 Vw] Urgent
Comment:
Reason For Exam: Nontraumatic pain with large effusion
Knee, Right 4 or More Views [CR Knee- Right 4 Or More View*] Urgent
Comment:
Reason For Exam: Nontraumatic pain with large effusion
01/24/24 12:44
HYDROmorphone [Dilaudid] 0.5 mg IV NOW STA
01/24/24 12:56
Basic Metabolic Panel Urgent
C-Reactive Protein Urgent
Comment: ADD ON
Complete Blood Count/With Diff Urgent
Erythrocyte Sed Rate Urgent
Comment: ADD ON
01/24/24 13:36
Add On- LAB Urgent
Tests Added?: esr,crp
Abnormal Lab Results
01/24/24
12:56
WBC 13.4 H 10^3/uL
(4.8-10.8)
MCH 31.5 H pg
(27.0-31.0)
Abs Immat Gran (auto) 0.1 H 10^3/uL
(0-0.05)
Absolute Neuts (auto) 10.1 H 10^3/uL
(1.4-6.5)
Absolute Monos (auto) 1.1 H 10^3/uL
(0.1-0.6)
Immature Gran % 0.7 H %
(0-0.5)
Neutrophils % 75.4 H %
(42.2-75.2)
Lymphocytes % 14.9 L %
(20.5-51.1)
Creatinine 0.4 L mg/dL
(0.6-1.0)
Glucose 125 H mg/dl
(70-99)
01/24/24 12:56
01/24/24 12:56
Vital Signs
Initial and Last Documented VS:
Initial Vital Signs
Temp Pulse Resp BP Pulse Ox
99.0 F 88 18 144/101 99
01/24/24 12:18 01/24/24 12:18 01/24/24 12:18 01/24/24 12:18 01/24/24 12:18
Last Documented Vital Signs
Temp Pulse Resp BP Pulse Ox
99.0 F 88 18 144/101 99
01/24/24 12:18 01/24/24 12:18 01/24/24 12:18 01/24/24 12:18 01/24/24 12:18
*Radiology
Radiology exam reviewed: radiology read reviewed (No acute changes on x-ray)
*Pulse Oximetry
Patient hypoxic: no
Update Note
Update Note:
Sudden symptoms with history of similar episodes. No systemic infectious symptoms. No warmth or erythema of the knee joint. Suspect hemarthrosis. Discussed with orthopedics who felt if the sed rate and CRP within normal limits could be
discharged to follow-up closely
ED Attending Note
-
Portions of this chart may have been created with voice recognition software.� Occasional wrong word or��sound alike� substitutions may have occurred due to the inherent limitations of voice recognition software.
Discharge Plan
Departure
Prescriptions:
No Action
magnesium 250 mg Tablet
250 mg PO DAILY Qty: 0
docosahexaenoic acid-epa 1 CAP capsule
1 cap PO DAILY
cholecalciferol (vitamin D3) [Vitamin D3] 25 mcg (1,000 unit) Tablet
25 mcg PO DAILY Qty: 0
amlodipine 10 mg tablet
10 mg PO DAILY
vitamin B complex Tablet
1 tab PO DAILY
Qvar RediHaler 80 mcg/actuation HFA aerosol breath activated
1 inh INHALATION R DAILY PRN (Reason: sob/wheezing)
albuterol sulfate 2.5 mg /3 mL (0.083 %) solution for nebulization
2.5 mg inhalation R QID PRN (Reason: shortness of breath or wheezing)
hydrocodone-acetaminophen 5-325 mg tablet
1 tab PO BID PRN (Reason: moderate pain)
Patient Comments:
12/10/2023: last filled 11/19/23, 12 tabs for 6 days from [facility]
metoprolol succinate 25 mg Tablet Extended Release 24 Hr
25 mg PO BID Qty: 60 0RF
Eliquis 5 mg tablet
5 mg PO BID Qty: 60 0RF
Referrals:
Ace Cox MD [Family Provider] -
Interventions
Interventions:
*Risk Screen - Suicide Last Done: 01/24/24 14:22
*Neglect/Abuse Screening Last Done: 01/24/24 14:22
ED-Musculoskeletal Assessment Last Done: 01/24/24 12:27
Discharge Date and Time
Print Language: TURKMEN
[2024-01-24] MEDS: PERCOCET 5/325 1 TABLET PO (16:00)
== END 2024-01-24 16:03 | disposition home or self-care (01) ==
LOC: EMR 12:12
PROVIDERS: EMERGENCY PHYSICIAN Emergency Medicine; FAMILY PHYSICIAN Internal Medicine
DX: M25.461 Effusion, right knee (principal); M25.561 Pain in right knee
CPT/HCPCS: 99284; 96374; 29505; 73552; 73564; 80048; 85025; 85652; 86140

== ENCOUNTER 2024-01-28 01:07 | Emergency (ER) | payer OTHER, SELFPAY ==
[2024-01-28 01:09] VITALS: BP 171/77; BMI 37.6
--- NOTE | 2024-01-28 01:30 | ED.GENMED ---
History of Present Illness
General
Chief Complaint: Musculo-Skeletal Complaint
Source: patient
Exam Limitations: none
Time Seen by Provider: 01/28/24 01:11
History of Present Illness
History of Present Illness:
This is a 63 year old female that is brought in by ambulance with c/o right knee pain. Patient states that she was also here on the for knee pain. States that she had X-rays of the knee and femur at that time. State that her right knee locked
up. States that the pain is unbearable. States that there was no fall or injury. Patient has an appointment on Tuesday with the counseling specialist. States that she has chronic diarrhea. Denies any fever, chills, chest pain, SOB, abd pain, nausea,
vomiting, headache, dizziness, urinary burning.
Past History
Past History
ED Past Medical History: Arrthythmia (Atrial flutter, ), Asthma, HTN, Hypercholesterolemia and Other (Kidney stones, Numbness arms and legs, Chronic diarrhea, )
ED Past Surgical History: Appendectomy, Cardiac (Pacemaker, ), (X 2) and Orthopedic (right total knee replacement, )
Social History
Tobacco: Non-smoker
Alcohol: None
Drug: None
Personal:
Living: with family
Employment: Employed
Family History
Family History: Other
Review of Systems
Review of Systems
All Other Systems: ROS reviewed and negative except as documented in HPI and ROS
Constitutional: Reports no symptoms; Denies fever or chills
EENT: Reports no symptoms
Respiratory: Reports no symptoms; Denies cough or trouble breathing
Cardiac: Reports no symptoms; Denies chest pain
ABD/GI: Reports diarrhea (Chronic); Denies abdominal pain, nausea or vomiting
: Reports no symptoms
Musculoskeletal: Reports joint pain (Right knee pain)
Skin: Reports no symptoms
Neurological: Reports no symptoms; Denies dizzy or headache
Psychiatric: Reports no symptoms
Phy Exam
General Physical Exam
General Presentation: moderate distress
General age: appears stated age
General Skin: warm and dry
General Habitus: normal
General Mental: alert
General Hydration: appears well hydrated
ENT Exam
ENT Exam: TM's normal, pharynx normal and neck supple
Eye Exam
Eye Exam: EOMI
Cardiovascular Exam
Cardiovascular Exam: regular rate/rhythm, no edema and normal peripheral pulses
Pulmonary Exam
Pulmonary Exam: lungs clear, no respiratory distress, no rales, chest non tender, no crackles, no rhonchi, no wheezing and no cough
Gastrointestinal Exam
Gastrointestinal Exam: normal bowel sounds, non tender, soft, no organomegaly, no pulsatile mass and non distended
Musculoskeletal Exam
Musculoskeletal Exam: other (right knee tenderness proximal lateral aspect with palpation. Swelling noted. Patient can flex and straighten leg)
Skin Exam
Skin Exam: normal color, warm/dry, no rash and no petechia
Psychiatric Exam
Psychiatric Exam: normal mood/affect
Course
Orders/Labs/Results
Orders:
Orders
01/28/24 01:28
HYDROmorphone [Dilaudid] 1 mg IV NOW STA
Ketorolac [Toradol] 30 mg IV NOW STA
US Legs, Right [US Periph Venous LOWER Ext RT] Urgent
Comment:
Reason For Exam: Right knee pain/leg pain
01/28/24 01:46
CRP [C-Reactive Protein] Urgent
Complete Blood Count/With Diff Urgent
Comprehensive Metabolic Panel Urgent
Sed Rate [Erythrocyte Sed Rate] Urgent
Abnormal Lab Results
01/28/24
01:46
WBC 14.2 H 10^3/uL
(4.8-10.8)
MCH 31.9 H pg
(27.0-31.0)
Abs Immat Gran (auto) 0.1 H 10^3/uL
(0-0.05)
Absolute Neuts (auto) 8.4 H 10^3/uL
(1.4-6.5)
Absolute Lymphs (auto) 3.7 H 10^3/uL
(1.2-3.4)
Absolute Monos (auto) 1.7 H 10^3/uL
(0.1-0.6)
Monocytes % 11.9 H %
(1.7-9.3)
Creatinine 0.5 L mg/dL
(0.6-1.0)
Glucose 121 H mg/dl
(70-99)
01/28/24 01:46
01/28/24 01:46
Vital Signs
Initial and Last Documented VS:
Initial Vital Signs
Pulse Resp BP Pulse Ox
89 30 171/77 96
01/28/24 01:09 01/28/24 01:09 01/28/24 01:09 01/28/24 01:09
Last Documented Vital Signs
Pulse Resp BP Pulse Ox
89 30 171/77 96
01/28/24 01:09 01/28/24 01:09 01/28/24 01:09 01/28/24 01:15
MDM/Problems Addressed
Differential Diagnosis Includes:
DVT, Bakers cyst,
MDM/Problems Addressed:
This is a 63 year old female that comes in by [facility] with c/o right knee pain. States that she was also here on the with knee pain. States that tonight her knee locked up and the pain is unbearable.
Will check labs and medicate for pain. Will also get US to c/o bakers cyst or DVT
Chronic conditions affecting care:
right total knee replacement
Acute Exacerbation and/or Progression of Chronic Illness:
NA
*Radiology
Radiology exam reviewed: other (US- negative for DVT)
*Pulse Oximetry
Patient hypoxic: no
*EKG
Interpreted by ED Provider?: NA
Rate: EKG- N/A
*Blood Bank Calendar Control Clerk Interpretation
Rate: Blood Bank Calendar Control Clerk- N/A
*Critical Care Note
Total Time (30-74mins, 75-104mins- exclusive of procedures): Not Applicable
ED Attending Note
-
Portions of this chart may have been created with voice recognition software.� Occasional wrong word or��sound alike� substitutions may have occurred due to the inherent limitations of voice recognition software.
Discharge Plan
Departure
Patient Disposition: Home (Routine Discharge)
Date of Disposition: 01/28/24
Time of Disposition: 04:07
Patient with high blood pressure during this ER visit?: Yes
Condition: Good
Covid-19: Not Applicable
Discharge Problem:
Acute pain of right knee
Instructions: Knee Pain (DC), BLOOD PRESSURE
Prescriptions:
New
oxycodone 10 mg tablet
10 mg PO Q6H PRN (Reason: Pain) Qty: 10 0RF
No Action
magnesium 250 mg Tablet
250 mg PO DAILY Qty: 0
docosahexaenoic acid-epa 1 CAP capsule
1 cap PO DAILY
cholecalciferol (vitamin D3) [Vitamin D3] 25 mcg (1,000 unit) Tablet
25 mcg PO DAILY Qty: 0
amlodipine 10 mg tablet
10 mg PO DAILY
vitamin B complex Tablet
1 tab PO DAILY
Qvar RediHaler 80 mcg/actuation HFA aerosol breath activated
1 inh INHALATION R DAILY PRN (Reason: sob/wheezing)
albuterol sulfate 2.5 mg /3 mL (0.083 %) solution for nebulization
2.5 mg inhalation R QID PRN (Reason: shortness of breath or wheezing)
hydrocodone-acetaminophen 5-325 mg tablet
1 tab PO BID PRN (Reason: moderate pain)
Patient Comments:
12/10/2023: last filled 11/19/23, 12 tabs for 6 days from [facility]
metoprolol succinate 25 mg Tablet Extended Release 24 Hr
25 mg PO BID Qty: 60 0RF
Eliquis 5 mg tablet
5 mg PO BID Qty: 60 0RF
Referrals:
UNKNOWN - PT DOES,NOT KNOW [Family Provider] -
Activity Restrictions/Additional Instructions:
As discussed, your blood work shows that your WBC are slightly elevated. Your Inflammatory markers are normal. Your Ultrasound is negative for any blood clots. You may use the Knee immobilizer as needed for pain. Follow up with the Orthopedic
doctor on Tuesday as scheduled. You may use Tylenol 1000mg every 6 hours for pain. A prescription for a narcotic pain medication has been sent to your Pharmacy. IF YOU HAVE INCREASED OR CHANGING PAIN, FEVER, OR ANY OTHER CONCERNS PLEASE RETURN TO
THE EMERGENCY ROOM.
Interventions
Interventions:
*Risk Screen - Suicide Last Done: 01/28/24 01:09
*General Assessment Last Done: 01/28/24 01:09
*Neglect/Abuse Screening Last Done: 01/28/24 01:09
ED- Fall Risk Assessment Last Done: 01/28/24 01:15
*ED COVID-19 Vaccine History Last Done: 01/28/24 01:09
ED-Musculoskeletal Assessment Last Done: 01/28/24 01:09
Discharge Date and Time
Print Language: AZERI
[2024-01-28] MEDS: TORADOL 30 MG IV (01:40)
[2024-01-28] MEDS: DILAUDID 1 MG IV ×2 (01:40→04:29)
[2024-01-28 01:55] LABS: % Basophils 0.6 % (0-2); % Eosinophils 1.6 % (0-6); % Immature Granulocytes 0.4 % (0-0.5); % Lymphocytes 26.4 % (20.5-51.1); % Monocytes 11.9 % (1.7-9.3); % Neutrophils 59.1 % (42.2-75.2); Absolute Basophils 0.1 10^3/uL (0-0.2); Absolute Eosinophils 0.2 10^3/uL (0-0.7); Absolute Immature Granulocytes 0.1 10^3/uL (0-0.05); Absolute Lymphocytes 3.7 10^3/uL (1.2-3.4); Absolute Monocytes 1.7 10^3/uL (0.1-0.6); Absolute Neutrophils 8.4 10^3/uL (1.4-6.5); Hematocrit 40.9 % (37.0-47.0); Hemoglobin 13.8 g/dL (12.0-16.0); Mean Corp Hgb Conc. 33.7 g/dL (33.0-37.0); Mean Corpuscular Hgb 31.9 pg (27.0-31.0); Mean Corpuscular Volume 94.7 fL (81.0-99.0); Mean Platelet Volume 10.2 fL (7.4-10.4); Nucleated Red Blood Cells % 0 %; Platelet Count 270 10^3/uL (130-400); Red Blood Cell Count 4.32 10^6/uL (4.20-5.40); White Blood Cell Count 14.2 10^3/uL (4.8-10.8)
[2024-01-28 02:09] LABS: ALT (SGPT) 27 U/L (0-35); AST (SGOT) 32 U/L (14-36); Albumin 4.2 g/dl (3.5-5.0); Alkaline Phosphatase 85 U/L (38-126); Blood Urea Nitrogen 15 mg/dl (7-17); Calcium 8.8 mg/dl (8.4-10.2); Carbon Dioxide 25 mmol/L (22-30); Chloride 107 mmol/L (98-107); Estimated Creatinine Clearance 101 ml/min; Glucose 121 mg/dl (70-99); Potassium 3.8 mmol/L (3.5-5.1); Sodium 142 mmol/L (135-145); Total Bilirubin 0.4 mg/dl (0.2-1.3); Total Protein 7.3 g/dl (6.3-8.2); eGFR > 60.00
[2024-01-28 02:11] LABS: Erythrocyte Sed Rate 16 mm/hour (0-20)
[2024-01-28] MEDS: TYLENOL 1000 MG PO (04:28)
== END 2024-01-28 04:43 | disposition home or self-care (01) ==
LOC: EMR 01:07
PROVIDERS: Clinical Nurse Specialist Family Health; EMERGENCY PHYSICIAN Emergency Medicine
DX: M25.561 Pain in right knee (principal); R19.7 Diarrhea, unspecified; M79.604 Pain in right leg; I48.92 Unspecified atrial flutter; I10 Essential (primary) hypertension; J45.909 Unspecified asthma, uncomplicated; E78.00 Pure hypercholesterolemia, unspecified; Z79.02 Long term (current) use of antithrombotics/antiplatelets; Z87.442 Personal history of urinary calculi; Z95.0 Presence of cardiac pacemaker; Z96.651 Presence of right artificial knee joint; M19.90 Unspecified osteoarthritis, unspecified site
CPT/HCPCS: 99284; 80053; 85025; 85652; 86140; 93971

== ENCOUNTER → 2024-02-02 07:34 | Outpatient (REF) | payer OTHER, SELFPAY | LOC: EMG 07:34 | PROVIDERS: ATTENDING PHYSICIAN Physical Medicine & Rehabilitation; FAMILY PHYSICIAN Internal Medicine | DX: R20.0 Anesthesia of skin (principal) | CPT/HCPCS: 95886; 95911 ==

== ENCOUNTER 2024-02-23 11:10 | Emergency (ER) | payer OTHER, SELFPAY ==
[2024-02-23 11:12] VITALS: BP 158/89
[2024-02-23 11:26] VITALS: BMI 35.9
[2024-02-23 12:00] VITALS: BP 150/80
--- NOTE | 2024-02-23 13:04 | ED.GENMED ---
History of Present Illness
General
Chief Complaint: Head Injury
Source: patient
Exam Limitations: none
Time Seen by Provider: 02/23/24 11:29
Nursing documentation reviewed up to this point in time: agreed with
History of Present Illness
History of Present Illness:
63-year-old female with past medical history of a flutter currently on Eliquis hypertension presenting to the emergency department today after lightly hitting her head on furniture at her home 1 time daily over the last 3 days. Denies any numbness
weakness nausea vomiting or additional concerns otherwise.
Past History
Past History
ED Past Medical History: Arrthythmia (Atrial flutter, ), Asthma, HTN, Hypercholesterolemia and Other (Kidney stones, Numbness arms and legs, Chronic diarrhea, )
ED Past Surgical History: Appendectomy, Cardiac (Pacemaker, ), (X 2) and Orthopedic (right total knee replacement, )
Social History
Tobacco: Non-smoker
Alcohol: None
Drug: None
Personal:
Living: with family
Employment: Employed
Family History
Family History: Other
Review of Systems
Review of Systems
Allergies reviewed?: Yes
All Other Systems: ROS reviewed and negative except as documented in HPI and ROS
Phy Exam
Physical Exam
Physical Exam:
GENERAL: Alert , in no apparent distress
EYE: pupils equal and reactive
NECK: Supple, no significant adenopathy.
ENT: o/p clr, mmm.
CARDIAC: Regular rate and rhythm .
LUNGS: Clear breath sounds bilaterally, no acute respiratory distress, no wheezes/rales/rhonchi
ABDOMEN: Soft, without focal tenderness, no r/g, no cvat
NEUROLOGICAL: Alert and oriented, no focal neuro deficits
SKIN: Warm and dry, skin intact.
MUSCULOSKELETAL: No edema, well perfused.
PSYCH: Normal and appropriate interaction.
Course
Orders/Labs/Results
Orders:
Orders
02/23/24 11:[address] [CT Head W/o Iv Contrast] Urgent
Comment:
Reason For Exam: head injury x 3 on Eliquis
Vital Signs
Initial and Last Documented VS:
Initial Vital Signs
Temp Pulse Resp BP Pulse Ox
98.1 F 87 18 158/89 96
02/23/24 11:12 02/23/24 11:12 02/23/24 11:12 02/23/24 11:12 02/23/24 11:12
Last Documented Vital Signs
Temp Pulse Resp BP Pulse Ox
98.1 F 84 15 150/80 99
02/23/24 11:12 02/23/24 12:00 02/23/24 12:00 02/23/24 12:00 02/23/24 12:00
MDM/Problems Addressed
MDM/Problems Addressed:
63-year-old female presenting to the emergency department today with concerns of minor head trauma hitting her head on furniture at home once daily over the last 3 days. Patient is on Eliquis thus came to the ER for CT scan. She otherwise looks
well vital signs are normal no distress normal neurologically. CT scan without evidence of bleed stable throughout ER stay. Return precautions given.
*Critical Care Note
Total Time (30-74mins, 75-104mins- exclusive of procedures): Not Applicable
ED Attending Note
-
Portions of this chart may have been created with voice recognition software.� Occasional wrong word or��sound alike� substitutions may have occurred due to the inherent limitations of voice recognition software.
Discharge Plan
Departure
Patient Disposition: Home (Routine Discharge)
Date of Disposition: 02/23/24
Time of Disposition: 13:25
Patient with high blood pressure during this ER visit?: No
Condition: Good
Covid-19: Not Applicable
Discharge Problem:
Mild closed head injury
Instructions: Head Injury in Adults (DC)
Prescriptions:
No Action
magnesium 250 mg Tablet
250 mg PO DAILY Qty: 0
docosahexaenoic acid-epa 1 CAP capsule
1 cap PO DAILY
cholecalciferol (vitamin D3) [Vitamin D3] 25 mcg (1,000 unit) Tablet
25 mcg PO DAILY Qty: 0
amlodipine 10 mg tablet
10 mg PO DAILY
vitamin B complex Tablet
1 tab PO DAILY
Qvar RediHaler 80 mcg/actuation HFA aerosol breath activated
1 inh INHALATION R DAILY PRN (Reason: sob/wheezing)
albuterol sulfate 2.5 mg /3 mL (0.083 %) solution for nebulization
2.5 mg inhalation R QID PRN (Reason: shortness of breath or wheezing)
hydrocodone-acetaminophen 5-325 mg tablet
1 tab PO BID PRN (Reason: moderate pain)
Patient Comments:
12/10/2023: last filled 11/19/23, 12 tabs for 6 days from [facility]
metoprolol succinate 25 mg Tablet Extended Release 24 Hr
25 mg PO BID Qty: 60 0RF
Eliquis 5 mg tablet
5 mg PO BID Qty: 60 0RF
oxycodone 10 mg tablet
10 mg PO Q6H PRN (Reason: Pain) Qty: 10 0RF
Referrals:
Melina Mcconnell DO [Family Provider] -
Activity Restrictions/Additional Instructions:
You came to the emergency department today after hitting her head. Here your CT scan appeared normal. This is reassuring. Return to the emergency department for any worsening, new or concerning symptoms.
Interventions
Interventions:
*Risk Screen - Suicide Last Done: 02/23/24 11:12
*General Assessment Last Done: 02/23/24 11:12
*Neglect/Abuse Screening Last Done: 02/23/24 11:12
ED- Neurological Assessment Last Done: 02/23/24 11:26
ED-Skin Assessment Last Done: 02/23/24 11:26
Discharge Date and Time
Print Language: AUSTRALIAN
== END 2024-02-23 13:34 | disposition home or self-care (01) ==
LOC: EMR 11:10
PROVIDERS: EMERGENCY PHYSICIAN Student in an Organized Health Care Education/Training Program; FAMILY PHYSICIAN Family Medicine
DX: S09.90XA Unspecified injury of head, initial encounter (principal); W22.03XA Walked into furniture, initial encounter; I10 Essential (primary) hypertension; Z79.01 Long term (current) use of anticoagulants
CPT/HCPCS: 99284; 70450

== ENCOUNTER → 2024-02-27 13:22 | Outpatient (REF) | payer OTHER, SELFPAY | LOC: HWRAD 13:22 | PROVIDERS: ATTENDING PHYSICIAN Orthopaedic Surgery; FAMILY PHYSICIAN Family Medicine | DX: M25.561 Pain in right knee (principal); M25.361 Other instability, right knee | CPT/HCPCS: 73700 ==

== ENCOUNTER → 2024-04-13 16:56 | Outpatient (REF) | payer OTHER, SELFPAY | LOC: HWRAD 16:56 | PROVIDERS: ATTENDING PHYSICIAN Nurse Practitioner Adult Health | DX: R10.9 Unspecified abdominal pain (principal) | CPT/HCPCS: 74018 ==

== ENCOUNTER → 2024-04-19 13:27 | Outpatient (REF) | payer OTHER, SELFPAY | LOC: MRI 13:27 | PROVIDERS: ATTENDING PHYSICIAN Physical Medicine & Rehabilitation; FAMILY PHYSICIAN Internal Medicine | DX: M54.12 Radiculopathy, cervical region (principal) | CPT/HCPCS: 72141 ==

== ENCOUNTER → 2024-06-22 14:29 | Outpatient (REF) | payer OTHER, SELFPAY | LOC: HWRAD 14:29 | PROVIDERS: ATTENDING PHYSICIAN Internal Medicine; REFERRING PHYSICIAN Nurse Practitioner Women's Health | DX: Z13.31 Encounter for screening for depression (principal); Z78.0 Asymptomatic menopausal state; Z13.820 Encounter for screening for osteoporosis | CPT/HCPCS: 77080 ==

== ENCOUNTER 2024-11-01 10:18 | Emergency (ER) | payer OTHER, SELFPAY ==
[2024-11-01 10:21] VITALS: BP 200/82
--- NOTE | 2024-11-01 11:33 | ED.GENMED ---
History of Present Illness
General
Chief Complaint: Musculo-Skeletal Complaint
Source: patient
Exam Limitations: none
Time Seen by Provider: 11/01/24 11:00
History of Present Illness
History of Present Illness:
63yoF with a history of atrial fibrillation on Eliquis, hypertension, pacemaker, and right knee replacement 2 years ago presenting for evaluation of right knee pain. Symptoms have been ongoing for about a year but have been worsening over the past
week. She states her knee will lock up for several hours and she is having difficulty with range of motion intermittently. She denies any trauma. Pain is worse in the lateral aspect of the knee. She has tried oxycodone and gabapentin without
relief. She had a right knee replacement 2 years ago and is scheduled to have a revision surgery with Dr. Bush in March. She denies any fevers, chills, paresthesias.
Past History
Past History
ED Past Medical History: Arrthythmia (Atrial flutter, ), Asthma, HTN, Hypercholesterolemia and Other (Kidney stones, Numbness arms and legs, Chronic diarrhea, )
ED Past Surgical History: Appendectomy, Cardiac (Pacemaker, ), (X 2) and Orthopedic (right total knee replacement, )
Social History
Tobacco: Non-smoker
Alcohol: None
Drug: None
Personal:
Living: with family
Employment: Employed
Family History
Family History: Other
Phy Exam
General Physical Exam
General Presentation: well appearing and no apparent distress
General age: appears stated age
General Skin: warm and dry
General Habitus: normal
General Mental: alert
ENT Exam
ENT Exam: normocephalic
Neurological Exam
Neurological Exam: alert
[place] Coma Scale
Eye Opening: Spontaneous
Verbal Response: Oriented
Motor Response: Obeys Commands
GCS Total Score: 15
Musculoskeletal Exam
Musculoskeletal Exam: other (R knee: No deformity, effusion, or erythema noted. ROM intact. No pitting edema or skin changes. 2+ DP pulse and sensation intact.)
Skin Exam
Skin Exam: normal color and warm/dry
Psychiatric Exam
Psychiatric Exam: normal mood/affect
Course
Orders/Labs/Results
Orders:
Orders
11/01/24 11:29
CR Knee- Right 4 Or More View* Urgent
Comment:
Reason For Exam: atraumatic pain
Vital Signs
Initial and Last Documented VS:
Initial Vital Signs
Temp Pulse Resp BP Pulse Ox
97.4 F 87 18 200/82 97
11/01/24 10:21 11/01/24 10:21 11/01/24 10:21 11/01/24 10:21 11/01/24 10:21
Last Documented Vital Signs
Temp Pulse Resp BP Pulse Ox
97.4 F 80 16 144/76 94
11/01/24 10:21 11/01/24 13:11 11/01/24 13:11 11/01/24 13:11 11/01/24 13:11
MDM/Problems Addressed
Differential Diagnosis Includes:
63yoF here with atraumatic R knee pain x 1 week. Hx of prior R knee replacement. No deformity or effusion on exam. ROM is normal. RLE is neurovascularly intact. No clinical signs to suggest DVT and patient is taking Eliquis. Differential diagnosis
includes but is not limited to: sprain, muscle spasm, fracture
X-rays of knee obtained which are negative for acute findings. Patient is stable for discharge. She does have gabapentin and oxycodone at home. She was advised to add Tylenol and Voltaren gel. Advised follow-up with her orthopedics team. She
was discharged in stable condition.
*Critical Care Note
Total Time (30-74mins, 75-104mins- exclusive of procedures): Not Applicable
ED Attending Note
-
Portions of this chart may have been created with voice recognition software.� Occasional wrong word or��sound alike� substitutions may have occurred due to the inherent limitations of voice recognition software.
Discharge Plan
Departure
Patient Disposition: Home (Routine Discharge)
Date of Disposition: 11/01/24
Time of Disposition: 12:52
Patient with high blood pressure during this ER visit?: Yes
Discharge Problem:
Right knee pain
Instructions: Muscle and Bone Pain (DC)
Prescriptions:
No Action
magnesium 250 mg Tablet
250 mg PO DAILY Qty: 0
docosahexaenoic acid-epa 1 CAP capsule
1 cap PO DAILY
cholecalciferol (vitamin D3) [Vitamin D3] 25 mcg (1,000 unit) Tablet
25 mcg PO DAILY Qty: 0
amlodipine 10 mg tablet
10 mg PO DAILY
vitamin B complex Tablet
1 tab PO DAILY
Qvar RediHaler 80 mcg/actuation HFA aerosol breath activated
1 inh INHALATION R DAILY PRN (Reason: sob/wheezing)
albuterol sulfate 2.5 mg /3 mL (0.083 %) solution for nebulization
2.5 mg inhalation R QID PRN (Reason: shortness of breath or wheezing)
hydrocodone-acetaminophen 5-325 mg tablet
1 tab PO BID PRN (Reason: moderate pain)
Patient Comments:
12/10/2023: last filled 11/19/23, 12 tabs for 6 days from [facility]
metoprolol succinate 25 mg Tablet Extended Release 24 Hr
25 mg PO BID Qty: 60 0RF
Eliquis 5 mg tablet
5 mg PO BID Qty: 60 0RF
oxycodone 10 mg tablet
10 mg PO Q6H PRN (Reason: Pain) Qty: 10 0RF
Referrals:
Abida Mcconnell DO [Family Provider] -
Activity Restrictions/Additional Instructions:
Take Tylenol 650mg every 6 hours as needed for pain. You may also use Voltaren gel.
Please follow-up with your orthopedics team.
Interventions
Interventions:
*Risk Screen - Suicide Last Done: 11/01/24 10:21
*General Assessment Last Done: 11/01/24 10:21
*Neglect/Abuse Screening Last Done: 11/01/24 10:21
*ED- Fall Risk Assessment Last Done: 11/01/24 13:13
*ED COVID-19 Vaccine History Last Done: 11/01/24 10:21
*Nursing Disposition Last Done: 11/01/24 13:13
ED-Musculoskeletal Assessment Last Done: 11/01/24 11:55
Discharge Date and Time
Discharge Date/Time: 11/01/24 13:14
Print Language: THAI
[2024-11-01 13:11] VITALS: BP 144/76
== END 2024-11-01 13:14 | disposition home or self-care (01) ==
LOC: EMR 10:18
PROVIDERS: EMERGENCY PHYSICIAN Student in an Organized Health Care Education/Training Program; FAMILY PHYSICIAN Internal Medicine
DX: M25.561 Pain in right knee (principal); I48.91 Unspecified atrial fibrillation; I10 Essential (primary) hypertension; E78.00 Pure hypercholesterolemia, unspecified; J45.909 Unspecified asthma, uncomplicated; Z79.01 Long term (current) use of anticoagulants; Z95.0 Presence of cardiac pacemaker; Z96.651 Presence of right artificial knee joint
CPT/HCPCS: 99283; 73564

== ENCOUNTER → 2024-11-02 13:15 | Outpatient (REF) | payer OTHER, SELFPAY | LOC: MRI 13:15 | PROVIDERS: ATTENDING PHYSICIAN Orthopaedic Surgery; FAMILY PHYSICIAN Internal Medicine | DX: M25.562 Pain in left knee (principal); M17.12 Unilateral primary osteoarthritis, left knee | CPT/HCPCS: 73721 ==

== ENCOUNTER → 2024-12-06 16:02 | Outpatient (REF) | payer MEDICARE, OTHER, SELFPAY | LOC: HWRAD 16:02 | PROVIDERS: ATTENDING PHYSICIAN Nurse Practitioner Acute Care; FAMILY PHYSICIAN Internal Medicine | DX: M54.12 Radiculopathy, cervical region (principal) | CPT/HCPCS: 72050 ==

== ENCOUNTER → 2024-12-18 12:10 | Outpatient (REF) | payer MEDICARE, OTHER, SELFPAY | LOC: HWRAD 12:10 | PROVIDERS: ATTENDING PHYSICIAN Internal Medicine | DX: R05.1 Acute cough (principal) | CPT/HCPCS: 71046 ==

== ENCOUNTER 2025-01-10 11:13 | Inpatient (IN) | payer MEDICARE, OTHER, SELFPAY ==
--- NOTE | 2024-12-18 15:05 | CM ---
Addendum entered by Debra Summers RN 12/20/24 10:28:
Cm spoke with patient via phone. Cm confirmed demographics. Patient lives independently. Patient's ex is going to provide support post operatively. Patient does not have a history of VN< SNF. Patient has walker and cane for ambulation.
Patient is active with her PCP. Patient confirmed pharmacy as [facility] in [place].
Patient plans to use [facility] in [place] for medication services.
CM encouraged patient to call for appointment at [facility].
PLAN: home with outpatient PT.
Original Note:
MERYL left message.
--- NOTE | 2024-12-27 11:38 | CM ---
Patient called stating that she needed to cancel her PAT appointments and she was unsure how to reschedule them. CM sent message to Venita Scherer to assist with rescheduling. CM left message for patient to update.
[2025-01-01 11:56] LABS: Hematocrit 42.6 % (37.0-47.0); Hemoglobin 14.1 g/dL (12.0-16.0); Mean Corp Hgb Conc. 33.1 g/dL (33.0-37.0); Mean Corpuscular Hgb 31.8 pg (27.0-31.0); Mean Corpuscular Volume 96.2 fL (81.0-99.0); Mean Platelet Volume 11.1 fL (7.4-10.4); Platelet Count 236 10^3/uL (130-400); Red Blood Cell Count 4.43 10^6/uL (4.20-5.40); Red Cell Dist. Width 12.7 % (11.5-14.5); White Blood Cell Count 8.8 10^3/uL (4.8-10.8)
[2025-01-01 12:34] LABS: ALT (SGPT) 28 U/L (0-35); AST (SGOT) 28 U/L (14-36); Albumin 3.9 g/dl (3.5-5.0); Alkaline Phosphatase 67 U/L (38-126); Blood Urea Nitrogen 9 mg/dl (7-17); Calcium 8.9 mg/dl (8.4-10.2); Carbon Dioxide 24 mmol/L (22-30); Chloride 111 mmol/L (98-107); Glucose 131 mg/dl (70-99); Potassium 4.3 mmol/L (3.5-5.1); Sodium 143 mmol/L (135-145); Total Bilirubin 0.6 mg/dl (0.2-1.3); Total Protein 6.7 g/dl (6.3-8.2); eGFR > 60.00
[2025-01-01 12:52] LABS: Glycohemoglobin (HgbA1c) 6.3 % (4.0-5.6)
[2025-01-01 13:48] VITALS: BMI 37.6
[2025-01-04 16:28] VITALS: BMI 37.6
[2025-01-10] VITALS (11 sets, daily range): BP systolic 112–142; BP diastolic 50–68; BMI 37.6
--- NOTE | 2025-01-10 08:20 | W.PN.UPDATE ---
Update Note
Progress Note Update
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
- s/p R TKA, 02/2022, at an outside facility
DVT prophylaxis - Eliquis at modified dosing, b/l venous foot pumps
- Eliquis 5 mg BID to be resumed POD 3 if remaining hemodynamically stable
HTN - + parameters - monitor BP
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
A-flutter
- Monitor on tele
- Continue BB
- Eliquis as stated above
Restrictive lung disease
Recurrent asthmatic bronchitis w/ acute episode recently
- Monitor O2
- IS
- Continue home inhaler
- Duoneb prn
- Prednisone taper
- Given recent acute episode, would benefit from Cefadroxil upon d/c
H/p SBO - bowel regimen of Colace and Senna
- Will advise adequate hydration, early mobility as tolerated, and the minimization of opioids
HLD
History of Lyme disease
Spinal stenosis, DDD with cervical spondylosis and mild cord compression
Osteopenia
Obesity, BMI 37.6
[2025-01-10] MEDS: CELEBREX 200 MG PO (11:50)
[2025-01-10] MEDS: TYLENOL 650 MG PO ×3 (11:50→21:43)
[2025-01-10] MEDS: NORMOSOL-R/PLASMALYTE-A 1000 IV ×2 (11:51→16:30)
--- NOTE | 2025-01-10 15:24 | OR.RPT ---
Operative Report
Operative Report
Orthopaedic Surgery Operative Note
DATE OF OPERATION: 01/10/2025
PREOPERATIVE DIAGNOSES: Painful right knee replacement, instability
POSTOPERATIVE DIAGNOSES: Same, Right TKA instability, impingement of polyethylene liner
OPERATION PERFORMED:
Revision left total knee arthroplasty, single component, without allograft. Polyethylene articular surface exchange (CPT 19345 with 22 modifier for complexity)
SURGEON: Fermin Bush MD
ASSISTANTS: Ankur Rosas PA-C who assisted with patient and limb positioning and retraction
ANESTHESIA: Spinal
COMPLICATIONS: None.
ESTIMATED BLOOD LOSS: 20mL
DRAINS: None
TOURNIQUET TIME: 34 minutes.
EXPLANTS: Ganesh Persona CPS 16mm spacer
IMPLANTS: Ganesh Persona PS 20mm spacer
FINDINGS: Well-preserved tissue planes. Hemosiderin stained synovium without nodular synovitis or purulence.
INDICATIONS: The patient presented to my office with debilitating left knee pain. She had undergone right TKA at [facility] February 2022. She had an uneventful posteoperative recovery. She had pain anteriorly with subjective instability and
recurrent swelling. Xrays showed well fixed well aligned components without signs of clear prosthetic-related complication. She had symmetric laxity in flexion and extension on exam. She failed to improve with physical therapy and other nonoperative
treatments. We discussed her triad of symptoms can be secondary to instability. Infection workup was negative. The patient exhausted all nonoperative treatment options and wished to proceed with revision knee replacement surgery. The patient
understood the risks which included, but were not limited to, bleeding, infection, failure to relieve pain, more pain than preop, damage to blood vessels and nerves, need for reoperation, mechanical failure of the implants, wound healing problems,
stiffness, instability, blood clot, pulmonary embolism, myocardial infarction, pneumonia, arrhythmia, CVA, and . The patient accepted these risks and wished to proceed. All questions were answered, and informed consent was obtained. We
discussed primary plan would be to upsize the polyethylene spacer or revise one or both of the components if needed.
PROCEDURE IN DETAIL: The patient was identified in the preoperative holding area. The right knee was identified as the operative site. The patient was taken in the operating room and placed in a supine position on the operating table. Spinal
anesthesia was performed. IV antibiotics and tranexamic acid were administered. A bump was placed under the left hemipelvis. A well-padded tourniquet was placed on the proximal thigh. All bony prominences were well padded. The left lower extremity
was prepped and draped in the usual sterile fashion.
We performed a surgical time-out. The limb was exsanguinated with an Esmarch bandage, then the tourniquet was inflated to 250 mmHg. The prior anterior midline scar was excised. Dissection was carried down to the extensor mechanism. A medial
parapatellar arthrotomy was performed. The synovium was healthy appearing with diffuse hemosiderin staining. No purulence. Small amount of yellow translucent synovial fluid. A complete synovectomy was performed in suprapatellar pouch and medial and
lateral gutters with care not to damage extensor mechanism or collateral ligaments. A subperiosteal peel was performed on the medial tibia. I excised scar tissue between the patella tendon and the anterior tibia to enhance exposure. The knee was
flexed. The patella was not everted - it was subluxated laterally.
The femoral and tibia components were inspected. A bone tamp was used to determine the components were well fixed. They appeared well positioned and well rotated. The metal surface of the tibia and femur appeared intact without wear or corrosion.
Decision was made to keep the femoral and tibial components. Revision equipment was available. The polyethylene liner was removed. This showed mechanical wear of the anterior aspect of the CPS post as well as the lateral aspect of the top of the
post. The notch was debrided. There were some areas of bone cement which appeared could be possible areas of impingement superiorly and laterally, and these were debrided. No backside wear to poly.
With the polyethylene component out, the posterior capsule was debrided and synovectomy was performed. The flexion and extension gaps were assessed and were symmetric in flexion and extension medially and laterally. The MCL and LCL were inspected
and noted to be intact. A trial poly was placed with a drop lucrecia showing appropriate neutral tibial alignment with the mechanical axis of tibia. Locking mechanism was intact.
Due to the signs of impingement and early wear of the CPS post, the knee was trialed with both CPS and PS spacers. The PS spacers achieved good stability. The CPS spacers seemed not to add much additional stability in flexion or extension compared
to the PS. Decision was made to utilize the PS spacer. The knee was trialed with 18mm and 20mm PS and CPS spacers, and the 20mm spacer seemed to acheive better stability than the 18mm spacer while allowing full ROM in extension and flexion.
The knee was copiously irrigated. The final polyethylene spacer was impacted into place and engaged the locking mechanism. No soft tissues as interposed.
The arthrotomy was closed with 0-PDS. Once closed, an interarticular block was performed with 0.25% bupivocaine with epi. The deep dermal layer was closed with 2-0 PDS, and the subcuticular skin was closed with 3-0 monocryl. A Dermabond Prineo
dressing was applied to the skin in full flexion. Once this was completely dry, a sterile waterproof dressing was applied.
The anesthesia team performed an adductor canal block in the OR prior to surgery. The patient awoke from anesthesia without any difficulties. The sponge and instrument counts were correct x2 at the end of the case. I was present and participated in
the entire case.
Of note, 22 modifier was added for complexity due to BMI >35kg/m2 which required an additional 20 minutes for positioning, exposure, and implanting the component.
Nabil Bush MD
[2025-01-10] MEDS: ROXICODONE 5 MG PO (15:56)
--- NOTE | 2025-01-10 17:44 | PTCARENOTE ---
Patient admitted from PACu post revision of right total knee replacement.The patient reports her pain at a 3 out of 10.Vital signs are within normal limits.Neurovascular assessment also within normal limits and ongoing.The Dressing is intact without
drainage.The patient is in her bed with the call peguero in reach.
[2025-01-10] MEDS: DILAUDID 0.5 MG IV (20:27)
[2025-01-10] MEDS: LYRICA 150 MG PO (21:43)
[2025-01-10] MEDS: COLACE 100 MG PO (21:43)
[2025-01-10] MEDS: VITAMIN D3 (cholecalciferol) 25 MCG PO (21:43)
[2025-01-10] MEDS: BACTROBAN 2% OINTMENT 1 APPLIC NASAL (21:44)
[2025-01-10] MEDS: SENOKOT 17.2 MG PO (21:44)
[2025-01-10] MEDS: ELIQUIS 2.5 MG PO (21:44)
[2025-01-10] MEDS: ANCEF 5 IV (21:44)
[2025-01-10] MEDS: TOPROL XL 25 MG PO (21:48)
[2025-01-11] MEDS: DILAUDID 0.5 MG IV ×2 (00:16→07:53)
[2025-01-11] MEDS: TYLENOL 650 MG PO ×3 (00:16→07:53)
[2025-01-11] MEDS: MELATONIN 5 MG PO (00:16)
[2025-01-11 03:15] VITALS: BP 117/59
[2025-01-11] MEDS: ANCEF 5 IV (05:13)
[2025-01-11 07:25] VITALS: BP 135/65
[2025-01-11] MEDS: COLACE 100 MG PO (07:52)
[2025-01-11] MEDS: SENOKOT 17.2 MG PO (07:52)
[2025-01-11] MEDS: DELTASONE 40 MG PO (07:52)
[2025-01-11] MEDS: LYRICA 150 MG PO (07:53)
[2025-01-11] MEDS: TOPROL XL 25 MG PO (07:53)
[2025-01-11] MEDS: ELIQUIS 2.5 MG PO (07:53)
[2025-01-11] MEDS: VITAMIN D3 (cholecalciferol) 25 MCG PO (07:53)
--- NOTE | 2025-01-11 08:46 | W.PN.ORTHO ---
Today's Communication / Plan
-
Await PT and OT recs.
D/c later today if remaining clinically stable.
Assessment
.
Distal Motor Intact: Yes
Dressing:
Clean, dry and intact.
Assessment:
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
- s/p R TKA, 02/2022, at an outside facility
DVT prophylaxis - Eliquis at modified dosing, b/l venous foot pumps
- Eliquis 5 mg BID to be resumed POD 3 if remaining hemodynamically stable
HTN - + parameters - BPs overall stable
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
A-flutter
- Rhythm stable on tele
- Continue BB
- Eliquis as stated above
Restrictive lung disease
Recurrent asthmatic bronchitis w/ acute episode recently
- O2 stable on RA
- IS
- Continue home inhaler
- Duoneb prn
- Prednisone taper
- Given recent acute episode, would benefit from Cefadroxil upon d/c
Probable ALEJANDRINA per wayne-op STOP-BANG assessment - sleep study referral sent
H/p SBO - bowel regimen of Colace and Senna
- Will advise adequate hydration, early mobility as tolerated, and the minimization of opioids
HLD
History of Lyme disease
Spinal stenosis, DDD with cervical spondylosis and mild cord compression
Osteopenia
Obesity, BMI 37.6
R knee pain relieved w/ IV Dilaudid overnight. Will switch at this point to solely PO Oxycodone as needed for mod-severe post-op pain. Patient reportedly has taken this multiple times in the past without ADRs. She feels comfortable w/ this plan
Plan
.
Surgery / Date: Revision of R TKA w/ Dr Bush 01/10/25
Activity:
Out of bed.
PT/OT
Discharge Plan: Home w/ Outpatient PT
Subjective
.
.:
Patient resting comfortably in bed.
R knee pain present but tolerable currently.
Denies any new significant complaints.
Eager for potential d/c today.
Vital Signs and Labs
.
Vital Signs and Labs:
Lab Results
01/01/25 08:40
01/01/25 08:40
Temp Pulse Resp BP Pulse Ox
98.4 F 67 15 135/65 94
01/11/25 07:25 01/11/25 07:25 01/11/25 07:25 01/11/25 07:25 01/11/25 07:25
Physical Exam
-
HEENT: No pallor, cyanosis, or jaundice. Throat clear.
NECK: Supple. No JVD.
RESPIRATORY: Lungs clear to auscultation.
CVS: S1, S2 normal. RRR.�
ABDOMEN: Soft, non-tender. No distension. Obese.
EXTREMITIES: Post-surgical R knee edema. Strength equal, no calf pain with palpation/dorsiflexion. Calves soft.
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 No focal deficits. marketing performance analyst grossly intact
--- NOTE | 2025-01-11 09:01 | W.DS.TRANS ---
DC Summary - Undercoat Sprayer
-
Discharge Instructions:
Sleep Apnea Risk High
Discharge Diagnosis/Procedures Mechanical failure of R TKA s/p Revision of R
TKA w/ Dr Bush 01/10/25
Diet Regular
Activity With Walker,As tolerated
Additional Activity Adequate hydration, minimize opioid, and wear
TEDs stockings to prevent low blood pressure/
dizziness
Driving Restrictions Not until seen by your Dr
Bathing Restrictions OK to Shower
Other Services PT
Wound Care Leave dressing on until seen by surgeon's office
for follow-up in 2 weeks.
Instructions:
Stand-Alone Forms: Total Hip/Knee Replacement D/C
Changes to Home Medications: Yes
Discharge Medications:
DC Medications w/original date entered in [facility]
cholecalciferol (vitamin D3) 25 mcg (1,000 unit) tablet (Vitamin D3) 25 mcg PO DAILY Supplement ##0 09/23/20
docosahexaenoic acid (dha)-epa 120 mg-180 mg capsule 1 cap PO DAILY Supplement 09/23/20
Held on 01/11/25. Instructions: Resume on 01/17/25.
magnesium 250 mg tablet 250 mg PO DAILY Supplement ##0 09/23/20
albuterol sulfate 2.5 mg/3 mL (0.083 %) solution for nebulization 2.5 mg inhalation R QID PRN shortness of breath or wheezing 12/10/23
beclomethasone dipropionate 80 mcg/actuation HFA breath activated aerosol (Qvar RediHaler) 1 inh inhalation R DAILY PRN sob/wheezing 12/10/23
vitamin B complex 1 tab PO DAILY Supplement 12/10/23
apixaban 5 mg tablet (Eliquis) 5 mg PO BID Blood clot prevention/tx #60 tabs 12/13/23
Held on 01/11/25. Instructions: Resume on 01/13/25.
metoprolol succinate 25 mg tablet,extended release 24 hr 25 mg PO BID Blood pressure #60 tabs 12/13/23
cefadroxil 500 mg capsule 500 mg PO BID infection prevention #14 caps 01/01/25
mupirocin 2 % topical ointment 1 applic topical BID infection prevention #1 tube 01/01/25
oxycodone 5 mg tablet 5 mg PO Q6H PRN 1 tab moderate pain, 2 tabs severe pain #30 tabs 01/01/25
prednisone 10 mg tablet 40 mg (4 x 10 mg) PO TAPER inflammation #20 tabs 01/01/25
Saccharomyces boulardii 250 mg capsule (Florastor) 250 mg PO BID #10 caps 01/11/25
acetaminophen 500 mg tablet (Tylenol Extra Strength) 1,000 mg (2 x 500 mg) PO Q6H #60 tabs 01/11/25
amlodipine 10 mg tablet 5 mg (1/2 x 10 mg) PO DAILY Blood Pressure #1 tab 01/11/25
apixaban 2.5 mg tablet (Eliquis) 2.5 mg PO BID #3 tabs 01/11/25
docusate sodium 100 mg capsule 100 mg PO BID #30 caps 01/11/25
magnesium hydroxide 400 mg/5 mL oral suspension (Milk of Magnesia) 15 ml PO HS PRN Constipation #3,000 mL 01/11/25
ondansetron HCl 4 mg tablet 4 mg PO Q6H PRN nausea and vomiting #30 tabs 01/11/25
pregabalin 150 mg capsule 150 mg PO BID #0 caps 01/11/25
sennosides 8.6 mg tablet (Nita-ed) 17.2 mg (2 x 8.6 mg) PO BID #30 tabs 01/11/25
Home Medication Changes
cefadroxil 500 mg capsule 500 mg PO BID infection prevention #14 caps 01/01/25
mupirocin 2 % topical ointment 1 applic topical BID infection prevention #1 tube 01/01/25
oxycodone 5 mg tablet 5 mg PO Q6H PRN 1 tab moderate pain, 2 tabs severe pain #30 tabs 01/01/25
prednisone 10 mg tablet 40 mg (4 x 10 mg) PO TAPER inflammation #20 tabs 01/01/25
Saccharomyces boulardii 250 mg capsule (Florastor) 250 mg PO BID #10 caps 01/11/25
acetaminophen 500 mg tablet (Tylenol Extra Strength) 1,000 mg (2 x 500 mg) PO Q6H #60 tabs 01/11/25
apixaban 2.5 mg tablet (Eliquis) 2.5 mg PO BID #3 tabs 01/11/25 - until POD 3, then switch back to 5 mg BID
docusate sodium 100 mg capsule 100 mg PO BID #30 caps 01/11/25
magnesium hydroxide 400 mg/5 mL oral suspension (Milk of Magnesia) 15 ml PO HS PRN Constipation #3,000 mL 01/11/25
ondansetron HCl 4 mg tablet 4 mg PO Q6H PRN nausea and vomiting #30 tabs 01/11/25
sennosides 8.6 mg tablet (Nita-ed) 17.2 mg (2 x 8.6 mg) PO BID #30 tabs 01/11/25
Pending Results: No
--- NOTE | 2025-01-11 09:04 | SLEEP.APNEA ---
Sleep Apnea Order
-
Patient screened as High Risk for Sleep Apnea on Stop Bang Questionnaire. Patient referred to [facility] for Pre-Study.

Name: LESLY CARDENAS
: 1960
Home Phone: Use [email or web address] instead
Cell Phone: [f_Reg Other Phone]
Work Phone:
Address: [address] [place] [address]
City: [place]
State: [place]
Zip: [f_[facility] Zip]
Family Physician: Abida Mcconnell DO
Height 5 ft 1 in
Actual Weight 90.3 kg
Body Mass Index (BMI) 37.6
Ordering Provider: Gloria Alexander PA-C
[2025-01-11 09:53] VITALS: BP 122/58; PULSE 73
--- NOTE | 2025-01-11 10:02 | CM ---
Cm reviewed medical records. CM met with patient and son in room. IMM given.
Patient confirmed her outpatient PT appointment with Anushka. No further questions at this time.
PLAN: home with outpatient PT.
[2025-01-11 11:15] VITALS: BP 135/56
== END 2025-01-11 13:10 | disposition home or self-care (01) | DRG 464 ==
LOC: 2 SOUTH 11:13
PROVIDERS: ADMITTING PHYSICIAN Orthopaedic Surgery; FAMILY PHYSICIAN Internal Medicine
PROC: 0SUC09C Supplement Right Knee Joint with Liner, Patellar Surface, Open Approach (ICD-10-PCS; 2025-01-10)
PROC: 0SPC09Z Removal of Liner from Right Knee Joint, Open Approach (ICD-10-PCS; 2025-01-10)
DX: T84.022A Instability of internal right knee prosthesis, initial encounter (principal); I48.92 Unspecified atrial flutter; Y83.1 Surgical operation with implant of artificial internal device as the cause of abnormal reaction of the patient, or of later complication, without mention of misadventure at the time of the procedure; Z95.0 Presence of cardiac pacemaker; I49.5 Sick sinus syndrome; J98.4 Other disorders of lung; J45.909 Unspecified asthma, uncomplicated; G47.33 Obstructive sleep apnea (adult) (pediatric); I10 Essential (primary) hypertension; Z79.01 Long term (current) use of anticoagulants; Z96.651 Presence of right artificial knee joint; E66.9 Obesity, unspecified; Z68.36 Body mass index [BMI] 36.0-36.9, adult; Z86.19 Personal history of other infectious and parasitic diseases; E78.5 Hyperlipidemia, unspecified; M47.812 Spondylosis without myelopathy or radiculopathy, cervical region; M48.00 Spinal stenosis, site unspecified; M85.80 Other specified disorders of bone density and structure, unspecified site; Y79.2 Prosthetic and other implants, materials and accessory orthopedic devices associated with adverse incidents
CPT/HCPCS: 73560; 80053; 83036; 85027; 87070; 93005; 97110; 97116; 97162; 97166; 97535

== ENCOUNTER → 2025-02-05 11:03 | Outpatient (REF) | payer MEDICARE, OTHER, SELFPAY | LOC: HWRAD 11:03 | PROVIDERS: ATTENDING PHYSICIAN Nurse Practitioner Acute Care; FAMILY PHYSICIAN Internal Medicine | DX: M54.12 Radiculopathy, cervical region (principal) | CPT/HCPCS: 72125 ==

== ENCOUNTER 2025-02-20 18:15 | Emergency (ER) | payer MEDICARE, OTHER, SELFPAY ==
[2025-02-20 18:19] VITALS: BP 141/74
[2025-02-20 18:54] LABS: COVID-19 Antigen Negative (Negative)
[2025-02-20 19:09] LABS: Hematocrit 37.4 % (37.0-47.0); Hemoglobin 12.6 g/dL (12.0-16.0); Mean Corp Hgb Conc. 33.7 g/dL (33.0-37.0); Mean Corpuscular Volume 92.3 fL (81.0-99.0); Platelet Count 61 10^3/uL (130-400); Red Cell Dist. Width 15.9 % (11.5-14.5)
[2025-02-20 19:11] LABS: Absolute Neutrophils -Man Diff 4.8 10^3/uL (1.4-6.5)
[2025-02-20 19:12] LABS: Normal RBC Morphology No; Platelets Checked Yes
[2025-02-20 19:13] LABS: Anisocytosis Slight; Macrocytosis 1+; Polychromasia Slight; Total Cells Counted 100
[2025-02-20 19:16] LABS: ALT (SGPT) 20 U/L (0-35); AST (SGOT) 45 U/L (14-36); Albumin 4.0 g/dl (3.5-5.0); Alkaline Phosphatase 95 U/L (38-126); Blood Urea Nitrogen 18 mg/dl (7-17); Calcium 8.6 mg/dl (8.4-10.2); Carbon Dioxide 20 mmol/L (22-30); Chloride 106 mmol/L (98-107); Glucose 165 mg/dl (70-99); Potassium 4.1 mmol/L (3.5-5.1); Total Protein 7.9 g/dl (6.3-8.2); eGFR > 60.00
[2025-02-20 19:26] LABS: Sodium 136 mmol/L (135-145)
--- NOTE | 2025-02-20 22:58 | ED.GENMED ---
History of Present Illness
General
Chief Complaint: Cold/Flu/URI Symptoms
Source: patient and previous hospital records (Overnight hospitalization January 10 of this year for right total knee arthroplasty revision.)
Exam Limitations: none
Time Seen by Provider: 02/20/25 22:05
Nursing documentation reviewed up to this point in time: agreed with
History of Present Illness
History of Present Illness:
This is a 64-year-old woman who has history of restrictive lung disease, bronchitis who suffered an episode of asthmatic bronchitis in December of this year treated with antibiotics and oral steroids.
She has history of atrial fibrillation maintained on Eliquis, metoprolol. History of sick sinus syndrome, pacemaker in place. History of hypertension, hyperlipidemia. History of cervical and lumbar DJD/spinal stenosis.
She has history of right total knee replacement and underwent arthroplastic revision January 10 of this year.
She states her knee has been doing well. She continues with outpatient physical therapy twice weekly.
Over the past 2 weeks patient complains of intermittent low-grade fevers, intermittent cough and wheezing. Cough occasionally productive of yellowish phlegm. Over the past week or so patient also notes intermittent nausea, intermittent dry heaves.
No definitive aggravating or relieving factors however nausea and vomiting have worsened today with significant nausea and several episodes of vomiting throughout the day today. Unable to eat or drink anything today. She has also had some loose
stools and admits to somewhat chronic loose stools but more so over the past few days. She denies hematemesis nor hematochezia. No close contacts with similar symptoms.
No recent travel nor recent antibiotic use.
She does note some intermittent mild crampy abdominal discomfort but nausea is her most pressing issue.
She denies sore throat, no nasal congestion, no headache, no dizziness nor lightheadedness.
No recent change in medications.
Of note. During overnight hospitalization January of this year there was mention of possible obstructive sleep apnea. Patient states she had been following with a caddie, not recently but has undergone 2 sleep studies in the past, one at home
as well as in the sleep lab, both of which reportedly unremarkable. No evidence of obstructive sleep apnea.
Past History
Past History
ED Past Medical History: Arrthythmia (Atrial flutter-chronically maintained on Eliquis, metoprolol), Asthma, HTN, Hypercholesterolemia and Other (Kidney stones, Numbness arms and legs, Chronic diarrhea, cervical and lumbar DJD/spinal stenosis)
ED Past Surgical History: Appendectomy, Cardiac (Pacemaker), (X 2) and Orthopedic (right total knee replacement 2021. Right knee arthroplastic revision January 10, 2025)
Social History
Tobacco: Non-smoker
Alcohol: None
Drug: None
Personal:
Living: with family (Resides with her son and her ex-.)
Employment: Retired
Family History
Family History: Other (Noncontributory)
Phy Exam
Physical Exam
Physical Exam:
GENERAL: 64-year-old woman appears her stated age, awake and alert, pleasant, appears in no acute distress. Rare brief nonproductive cough is noted. No respiratory distress. Oral temperature 100.9 �F.
EYE: pupils equal and reactive. anicteric
NECK: Supple, nontender, no meningismus, no significant adenopathy.
ENT: posterior pharynx is clear, oral mucosa is moderately dry. TM clear b/l, nares patent.
CARDIAC: Regular rhythm, mildly tachycardic. no murmur.
LUNGS: Clear breath sounds bilaterally, no acute respiratory distress, no wheezes/rales/rhonchi
ABDOMEN: Soft, nondistended, mild generalized tenderness to palpation, no r/g, no cvat. Mildly hyperactive bowel sounds.
NEUROLOGICAL: Alert and oriented x3, no focal neuro deficits. Gait is steady.
SKIN: Mildly hot to touch and dry, normal color, skin intact. No rash.
MUSCULOSKELETAL: No C/C/E. peripheral pulses are full and equal b/l. No palpable tenderness.
PSYCH: Normal and appropriate interaction.
Course
Orders/Labs/Results
Orders:
Orders
02/20/25 18:21
EKG [Electrocardiogram (*1)] Urgent
Reason for Study: Shortness of Breath
EKG- Treatment ONCE
02/20/25 18:30
COVID-19 Antigen Urgent
Source: Nasal Swab
Complete Blood Count/With Diff Urgent
Comprehensive Metabolic Panel Urgent
Lipase Urgent
Comment: ADDED
Manual Differential Urgent
Influenza A+B Rapid Molecular Urgent
ZAKIA Source: Nasal Swab
Specimen Description:
02/20/25 22:12
CR Chest - 2 Views Urgent
Comment:
Reason For Exam: cough, fever, SOB
02/20/25 22:58
Urinalysis Reflex To Culture Urgent
Date Specimen was Collected: 02/21/25
Time Specimen was Collected: 02:45
02/20/25 23:14
Add On- LAB Urgent
Tests Added?: lipase
02/20/25 23:15
0.9% Sodium Chloride 1000 ml [Nss] 1,000 ml IV BOLUS
Acetaminophen 1000MG/100Ml [Ofirmev] 1,000 mg in 100 ml IV ONCE
Acetaminophen IV Indication:: ED Narcotic Naive Pt-ONCE
Ipratropium/Albuterol Sulfate [Duoneb] 3 ml INH R NOW STA
Ondansetron Injectable [Zofran] 4 mg IV NOW STA
02/20/25 23:24
Lactic Acid Urgent
Blood Culture Q30M
ZAKIA Source: Blood/Venous
Specimen Description:
Blood Culture Q30M
ZAKIA Source: Blood/Venous
Specimen Description:
02/20/25 23:31
STOOL [C difficile Antigen & Toxins] Urgent
ZAKIA Source: Feces/Stool
Specimen Description:
Stool Culture Urgent
ZAKIA Source: Feces/Stool
Specimen Description:
02/21/25
CT Abd/pelvis W Iv Cont Urgent
Reason For Exam: fever, N/V/D, elevated LFT's
02/21/25 01:43
0.9% Sodium Chloride 1000 ml [Nss] 1,000 ml IV BOLUS
Abnormal Lab Results
02/20/25
18:30
RBC 4.05 L 10^6/uL
(4.20-5.40)
MCH 31.1 H pg
(27.0-31.0)
RDW 15.9 H %
(11.5-14.5)
Plt Count 61 L 10^3/uL
(130-400)
MPV 14.0 H fL
(7.4-10.4)
Monocytes (Manual) 14 H %
(2-9)
Carbon Dioxide 20 L mmol/L
(22-30)
BUN 18 H mg/dl
(7-17)
Glucose 165 H mg/dl
(70-99)
Total Bilirubin 2.3 H mg/dl
(0.2-1.3)
AST 45 H U/L
(14-36)
02/20/25 18:30
02/20/25 18:30
Vital Signs
Temp: 100.9 F
Initial and Last Documented VS:
Initial Vital Signs
Temp Pulse Resp BP Pulse Ox
100.1 F 123 20 141/74 96
02/20/25 18:19 02/20/25 18:19 02/20/25 18:19 02/20/25 18:19 02/20/25 18:19
Last Documented Vital Signs
Temp Pulse Resp BP Pulse Ox
100.9 F H 100 21 141/74 94
02/20/25 23:30 02/20/25 21:45 02/20/25 21:45 02/20/25 18:19 02/21/25 00:00
MDM/Problems Addressed
Differential Diagnosis Includes:
Concern for exacerbation of asthma, pneumonia, gastroenteritis, colitis, gastritis, cholecystitis, pancreatitis, UTI. Other consideration is viral syndrome, sepsis/bacteremia.
Nothing in history nor exam to suggest prosthetic knee infection nor infectious arthropathy.
Clinically dry in appearance and noted to have low-grade fever. Otherwise hemodynamically stable.
Will initiate IV fluids, given IV dose of Tylenol for fever and an IV dose of Zofran for nausea.
Thus far labs revealed normal CBC, chemistries show mild dehydration, mildly elevated T. bili at 2.3 which is a new finding as well as minimally elevated AST. COVID and flu testing are negative.
Chest x-ray is unremarkable.
EKG shows sinus tachycardia, left axis deviation, LVH. Compared to EKG January 01 of this year, heart rate has increased from 74 to now 114. Tachycardia likely related to fever and dehydration. She has been compliant with Eliquis, PE is unlikely. No
history of CHF, no evidence of CHF on chest x-ray and lungs are clear to auscultation.
Chronic conditions affecting care: HTN, Arrhythmia and Asthma
*Radiology
Radiology exam reviewed: radiology read reviewed (Chest x-ray is unremarkable. CT abdomen pelvis shows no acute intra-abdominal pathology.)
*Pulse Oximetry
SaO2: 93
Oxygen Mode of Delivery: Room air
Patient hypoxic: no
*EKG
Interpreted by ED Provider?: Yes
Interpretation: abnormal
Comparison EKG: no changes (Unchanged from previous December 2024 stay for heart rate has increased)
Rate: tachycardiac
Rhythm: sinus
[place]: left axis deviation
Interval: normal interval
QRS Pattern: left vent hypertrophy
Ischemia: no ischemia
*Licensed Nurse Practitioner Interpretation
Rate: tachycardiac
Interpretation: abnormal
Rhythm: sinus
*Critical Care Note
Total Time (30-74mins, 75-104mins- exclusive of procedures): Not Applicable
Update Note
Update Note:
03:10
Patient feeling improved after IV fluids and an IV dose of Zofran. Nausea has resolved and she is now tolerating ice chips, sips of water.
She has had no diarrhea.
CAT scan shows no acute intra-abdominal pathology.
I suspect low-grade fever, nausea and vomiting are viral in nature.
Will discharge to home with prescription for Zofran ODT.
Recommend limiting diet to clear liquids over the next 1 to 2 days, slowly advance as tolerated.
Prompt follow-up with PCP for recheck.
Return precautions discussed.
ED Attending Note
-
Portions of this chart may have been created with voice recognition software.� Occasional wrong word or��sound alike� substitutions may have occurred due to the inherent limitations of voice recognition software.
Discharge Plan
Departure
Patient Disposition: Home (Routine Discharge)
Date of Disposition: 02/21/25
Time of Disposition: 03:13
Patient with high blood pressure during this ER visit?: No
Condition: Good
Discharge Problem:
Acute gastroenteritis
Instructions: Viral gastroenteritis in adults, Fever, Adult (DC), Clear liquid diet
Prescriptions:
New
ondansetron 4 mg tablet,disintegrating
4 mg PO QID PRN (Reason: nausea and vomiting) Qty: 20 0RF
No Action
magnesium 250 mg Tablet
250 mg PO DAILY Qty: 0
docosahexaenoic acid-epa 1 CAP capsule
1 cap PO DAILY
cholecalciferol (vitamin D3) [Vitamin D3] 25 mcg (1,000 unit) Tablet
25 mcg PO DAILY Qty: 0
vitamin B complex Tablet
1 tab PO DAILY
Qvar RediHaler 80 mcg/actuation HFA aerosol breath activated
1 inh INHALATION R DAILY PRN (Reason: sob/wheezing)
albuterol sulfate 2.5 mg /3 mL (0.083 %) solution for nebulization
2.5 mg inhalation R QID PRN (Reason: shortness of breath or wheezing)
metoprolol succinate 25 mg Tablet Extended Release 24 Hr
25 mg PO BID Qty: 60 0RF
Eliquis 5 mg tablet
5 mg PO BID Qty: 60 0RF
mupirocin 2 % ointment
1 applic topical BID Qty: 1 0RF
Patient Comments:
last dose was this am- pt started this 3 days ago.
prednisone 10 mg tablet
40 mg PO TAPER Qty: 20 0RF
Rx Instructions:
4 TABS X 2 DAYS, 3 TABS X 2 DAYS, 2 TABS X 2 DAYS, 1 TAB X 2 DAYS, THEN STOP
POST-OP
cefadroxil 500 mg capsule
500 mg PO BID Qty: 14 0RF
Rx Instructions:
*Take w/ food
*Take w/ probiotic
*POST-OP USE
oxycodone 5 mg tablet
5 mg PO Q6H PRN (Reason: 1 tab moderate pain, 2 tabs severe pain) Qty: 30 0RF
Rx Instructions:
Ongoing therapy
POST-OP USE ONLY
docusate sodium 100 mg Capsule
100 mg PO BID Qty: 30 0RF
Eliquis 2.5 mg Tablet
2.5 mg PO BID Qty: 3 0RF
Rx Instructions:
Cut 5 mg tab in 1/2 (= 2.5 mg) and take 6/6 PM, 6/7 AM, and 6/7 PM.
Resume Eliquis 5 mg 2x daily on 6/8 AM.
magnesium hydroxide [Milk of Magnesia] 400 mg/5 mL Suspension
15 ml PO HS PRN (Reason: Constipation) Qty: 3000 0RF
Rx Instructions:
Add to bowel regimen of Colace and Senna if no bowel movement occurs within 48-72 hours post-procedure.
sennosides [Nita-ed] 8.6 mg Tablet
17.2 mg PO BID Qty: 30 0RF
acetaminophen [Tylenol Extra Strength] 500 mg tablet
1,000 mg PO Q6H Qty: 60 0RF
Rx Instructions:
DO NOT exceed >4000 mg daily.
ondansetron HCl 4 mg tablet
4 mg PO Q6H PRN (Reason: nausea and vomiting) Qty: 30 0RF
Saccharomyces boulardii [Florastor] 250 mg capsule
250 mg PO BID Qty: 10 0RF
Rx Instructions:
Over the counter. Take while on probiotic.
If unavailable, choose a different probiotic.
amlodipine 10 mg tablet
5 mg PO DAILY Qty: 1 0RF
Rx Instructions:
HOLD IF systolic blood pressure <130 while on Oxycodone.
pregabalin 150 mg Capsule
150 mg PO BID Qty: 0 0RF
Referrals:
Abida Mcconnell DO [Family Provider, Family Practice] - Call in 1-3 days for appt
Interventions
Interventions:
*Risk Screen - Suicide Last Done: 02/20/25 18:19
*General Assessment Last Done: 02/20/25 18:19
*Neglect/Abuse Screening Last Done: 02/20/25 18:19
*ED- Fall Risk Assessment Last Done: 02/20/25 18:19
*ED COVID-19 Vaccine History Last Done: 02/20/25 18:19
ED- Pulmonary Assessment Last Done: 02/21/25 00:00
Discharge Date and Time
Print Language: PALESTINIAN
[2025-02-20] MEDS: OFIRMEV 100 IV (23:33)
[2025-02-20] MEDS: DUONEB 3 ML INH (23:34)
[2025-02-20] MEDS: NSS 1000 IV (23:34)
[2025-02-20] MEDS: ZOFRAN 4 MG IV (23:34)
[2025-02-20 23:42] VITALS: BP 132/53
[2025-02-21] VITALS: BP 116/51
[2025-02-21 00:47] LABS: Lipase 117 U/L (23-300)
[2025-02-21 01:00] VITALS: BP 98/78
[2025-02-21] MEDS: NSS 1000 IV (02:41)
[2025-02-21 02:48] VITALS: BP 140/61
[2025-02-21 03:00] VITALS: BP 132/57
[2025-02-21 03:12] LABS: Urine Character Clear (Clear)
[2025-02-21 03:21] LABS: Urine Red Blood Cell 0-2 /HPF (0-2)
[2025-02-21 03:54] VITALS: BP 132/80
== END 2025-02-21 04:05 | disposition home or self-care (01) ==
LOC: EMR 18:15
PROVIDERS: Emergency Medicine; EMERGENCY PHYSICIAN Emergency Medicine; FAMILY PHYSICIAN Internal Medicine
DX: R50.9 Fever, unspecified (principal); R05.9 Cough, unspecified; R06.02 Shortness of breath; R10.9 Unspecified abdominal pain; R06.2 Wheezing; Z11.52 Encounter for screening for COVID-19; K52.9 Noninfective gastroenteritis and colitis, unspecified; R00.0 Tachycardia, unspecified; I48.91 Unspecified atrial fibrillation; I49.5 Sick sinus syndrome; I10 Essential (primary) hypertension; E78.00 Pure hypercholesterolemia, unspecified; M47.816 Spondylosis without myelopathy or radiculopathy, lumbar region; M48.00 Spinal stenosis, site unspecified; M19.90 Unspecified osteoarthritis, unspecified site; M79.7 Fibromyalgia; J45.909 Unspecified asthma, uncomplicated; R01.1 Cardiac murmur, unspecified; I48.92 Unspecified atrial flutter; Z79.01 Long term (current) use of anticoagulants; Z95.0 Presence of cardiac pacemaker; Z96.651 Presence of right artificial knee joint; Z87.442 Personal history of urinary calculi
CPT/HCPCS: 99285; 96374; 96375; 96361 ×2; 94640; 71046; 74177; 80053; 81003; 81015; 83605; 83690; 85025; 87040; 87502; 87811; 93005; Q9967

== ENCOUNTER → 2025-03-28 11:03 | Outpatient (REF) | payer MEDICARE, OTHER, SELFPAY | LOC: HWWDC 11:03 | PROVIDERS: ATTENDING PHYSICIAN Nurse Practitioner Women's Health; FAMILY PHYSICIAN Internal Medicine | DX: Z12.31 Encounter for screening mammogram for malignant neoplasm of breast (principal) | CPT/HCPCS: 77063; 77067 ==

== ENCOUNTER → 2025-07-11 09:31 | Outpatient (REF) | payer MEDICARE, OTHER, SELFPAY | LOC: WDC 09:31 | PROVIDERS: ATTENDING PHYSICIAN Internal Medicine; REFERRING PHYSICIAN Nurse Practitioner Women's Health | DX: N63.21 Unspecified lump in the left breast, upper outer quadrant (principal) | CPT/HCPCS: 76642; 77061; 77065 ==